=== PATIENT | female | born 1945 | race Caucasian/White ===

== ENCOUNTER → 2017-11-15 08:51 | Outpatient (CLI) | payer MEDICARE, OTHER, SELFPAY ==
--- NOTE | 2017-11-15 08:55 | DI.RAD.S_ITS ---
PROCEDURE: XR CHEST 2V INDICATIONS: persistent cough, possible pneumonia TECHNIQUE: 2 views of the chest were acquired. COMPARISON: [facility], , CHEST 2 VIEW, 02/14/2014, 10:36. FINDINGS: Surgical changes and devices: None. Lungs and pleura: No pleural effusions or pneumothorax. Lungs are clear. Mediastinum: Mediastinal contours are normal. Heart size is normal. Bones and chest wall: No suspicious bony abnormalities. Soft tissues appear unremarkable. IMPRESSION: Normal for age. Dictated by: Elieser Edwards M.D. on 11/15/2017 at 9:36 Approved by: Elieser Edwards M.D. on 11/15/2017 at 9:37
== END ==
PROVIDERS: Family Provider Physician Assistant; PCP Family Medicine; Visit Provider Physician Assistant
DX: R05 Cough (principal)
CPT/HCPCS: 71046

== ENCOUNTER → 2018-04-07 12:18 | Outpatient (CLI) | payer MEDICARE, OTHER, SELFPAY ==
--- NOTE | 2018-04-07 12:20 | DI.MG.S_ITS ---
BILATERAL DIGITAL SCREENING MAMMOGRAM 3D/2D WITH CAD POST LUMPECTOMY: 04/07/2018 CLINICAL: Routine screening. Personal history of right breast cancer. Comparison is made to exams dated: 07/27/2016 breast MRI, 07/14/2016 mammogram, and 06/25/2014 mammogram - Located [facility]. The tissue of both breasts is heterogeneously dense. This may lower the sensitivity of mammography. Current study was also evaluated with a Computer Aided Detection (CAD) system. There are benign post operative findings in the right breast. No significant masses, calcifications, or other findings are seen in either breast. There has been no significant interval change. IMPRESSION: There is no mammographic evidence of malignancy. A 1 year screening mammogram is recommended. This exam was interpreted at Station ID: [id number]. NOTE: For mammograms, a report in lay terms will be sent to the patient. Approximately 15% of breast malignancies will not be visualized mammographically. In the management of a palpable breast mass, a negative mammogram must not discourage biopsy of a clinically suspicious lesion. Electronically Signed By: Bisi wheeler/delfin:04/07/2018 13:22:05 letter sent: Normal Exam ACR BI-RADS Category 2: Benign Finding(s) 3342F
== END ==
PROVIDERS: PCP Physician Assistant; Visit Provider Physician Assistant
DX: Z12.31 Encounter for screening mammogram for malignant neoplasm of breast (principal); Z85.3 Personal history of malignant neoplasm of breast
CPT/HCPCS: 77063; 77067

== ENCOUNTER → 2018-07-19 13:36 | Outpatient (CLI) | payer MEDICARE, OTHER, SELFPAY | PROVIDERS: PCP Physician Assistant; Visit Provider Physician Assistant | DX: M81.0 Age-related osteoporosis without current pathological fracture (principal); Z85.3 Personal history of malignant neoplasm of breast; Z87.891 Personal history of nicotine dependence | CPT/HCPCS: 77080; 77081 ==

== ENCOUNTER → 2019-04-12 10:31 | Outpatient (CLI) | payer MEDICARE, OTHER, SELFPAY ==
--- NOTE | 2019-04-12 10:34 | DI.RAD.S_ITS ---
PROCEDURE: XR CHEST 2V INDICATIONS: ongoing cough, history of smoking TECHNIQUE: 2 views of the chest were acquired. COMPARISON: [facility], CR, XR CHEST 2V, 11/15/2017, 8:42. FINDINGS: Surgical changes and devices: Surgical clips projecting in the upper arm as before. Lungs and pleura: Lungs are clear. No pleural effusions or pneumothorax. Mediastinum: Mediastinal contours are normal. Heart size is normal. Bones and chest wall: No suspicious bony abnormalities. Soft tissues appear unremarkable. IMPRESSION: No acute disease. Dictated by: Alejandro Cruz M.D. on 04/12/2019 at 12:16 Approved by: Alejandro Cruz M.D. on 04/12/2019 at 12:28
== END ==
PROVIDERS: Visit Provider Nurse Practitioner Family
DX: R05 Cough (principal); Z87.891 Personal history of nicotine dependence
CPT/HCPCS: 71046

== ENCOUNTER → 2019-08-07 11:19 | Outpatient (CLI) | payer MEDICARE, OTHER, SELFPAY | PROVIDERS: PCP Nurse Practitioner Family; Referring Provider Nurse Practitioner Family; Visit Provider Nurse Practitioner Family | DX: N30.00 Acute cystitis without hematuria (principal) | CPT/HCPCS: 87086 ==

== ENCOUNTER 2019-10-04 18:08 | Emergency (ER) | payer MEDICARE, OTHER, SELFPAY ==
[2019-10-04 18:17] VITALS: BP 172/95; PULSE 74; RESP 16; TEMP 36.8; O2SAT 99; BMI 28.1
--- NOTE | 2019-10-04 18:17 | DI.RAD.S_ITS ---
PROCEDURE: XR HAND LT MIN 3V INDICATIONS: injury left hand TECHNIQUE: 3 views of the hand(s) acquired. COMPARISON: None. FINDINGS: Bones: No fractures or dislocations. Carpal bones are normally aligned. No suspicious bony lesions. IP and prominent first CMC degenerative narrowing are present. Old ulnar styloid fracture is noted. Soft tissues: No suspicious soft tissue calcifications. IMPRESSION: No visualized acute fracture or dislocation. However, if clinical concern and/or pain persist, short interval imaging followup in 7-10 days is recommended, as occult injury cannot be definitively excluded. Dictated by: Amada Escudero M.D. on 10/04/2019 at 18:43 Approved by: Amada Escudero M.D. on 10/04/2019 at 18:44
--- NOTE | 2019-10-04 18:19 | DI.RAD.S_ITS ---
PROCEDURE: XR WRIST LT MIN 3V INDICATIONS: fall TECHNIQUE: 4 views of the wrist were acquired. COMPARISON: [facility], CR, XR HAND LT MIN 3V, 10/04/2019, 18:11. FINDINGS: Bones: No fractures or dislocations. No suspicious bony lesions. First CMC degenerative narrowing is present. Old ulnar styloid fracture is noted. Scaphoid view: No visualized fracture. Soft tissues: No suspicious soft tissue calcifications. IMPRESSION: No visualized acute fracture or dislocation. However, if clinical concern and/or pain persist, short interval imaging followup in 7-10 days is recommended, as occult injury cannot be definitively excluded. Dictated by: Amada Escudero M.D. on 10/04/2019 at 18:48 Approved by: Amada Escudero M.D. on 10/04/2019 at 18:49
--- NOTE | 2019-10-04 19:01 | ED_ITS ---
HPI - Extremity Injury (Upper) <SYL Peterson - Last Filed: 10/04/19 21:32> General Chief Complaint: Extremity Injury, Upper Stated Complaint: fall, left hand and wrist injury Time Seen by Provider: 10/04/19 18:17 Source: patient Mode of arrival: Family Vehicle Limitations: no limitations History of Present Illness HPI narrative: 73yo male presents to the emergency department for left wrist and hand pain after tripping in her garden. She states she tripped on her flip- flops fell on her left hand. Patient reports she had a previous fracture years ago to her left wrist. She states she has a dull aching 4/10 pain that is worse with movement. Patient reports small laceration hand, bleeding controlled with pressure. Unknown last Tdap. She also reports hitting her head briefly. Patient denies any syncope, severe headache, history of taking any blood thinners, chest pain, vomiting, nausea, abdominal pain, fevers, chills, gait imbalances, or any other concerns. Related Data Home Medications Medication Instructions Recorded Confirmed [ISAGENIX SUPPLEMENTS] PO QDAY #0 01/27/16 08/05/19 Previous Rx's Medication Instructions Recorded raloxifene 60 mg tablet 60 mg PO DAILY #90 tab 09/13/19 Allergies Allergy/AdvReac Type Severity Reaction Status Date / Time No Known Drug Allergies Allergy Verified 10/04/19 18:28 Review of Systems <SYL Peterson - Last Filed: 10/04/19 21:32> Review of Systems Narrative: REVIEW OF SYSTEMS: GENERAL: Denies fever or chills. HENT: Reports head trauma, denies laceration or lump, see HPI. EYES: No vision changes. CARDIOVASCULAR: No chest pain or syncope. RESPIRATORY: No shortness of breath or cough. GASTROINTESTINAL: No nausea, vomiting, diarrhea, or constipation. GENITOURINARY: No flank pain or dysuria. MUSCULOSKELETAL: Complains of L wrist pain, see HPI. INTEGUMENTARY: Reports laceration to lateral aspect of hand. NEURO: No numbness, tingling. PSYCH: No behavior or mood changes. 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 Grandfather No problems noted. Grandmother No problems noted. Social History Smoking Status: Former smoker second hand exposure: Yes alcohol intake: current (wine and beer a couple of times a week) substance use type: former substance user (marijuana) Smoking Status: Former smoker alcohol intake frequency: 0-2 drinks per day Substance Use Type: does not use Exam <SYL Peterson - Last Filed: 10/04/19 21:32> Initial Vital Signs Initial Vital Signs: Vital Signs Temperature 98.2 F 10/04/19 18:17 Pulse Rate 74 10/04/19 18:17 Respiratory Rate 16 10/04/19 18:17 Blood Pressure 172/95 H 10/04/19 18:17 Pulse Oximetry 99 10/04/19 18:17 PHYSICAL EXAMINATION: GENERAL: Well groomed, alert, and cooperative. Answers questions promptly and appropriately. Vital signs noted. HENT: Normocephalic, no signs of trauma, no laceration or hematoma noted to head. EYES: Symmetrical, sclera white, no periorbital swelling. CARDIOVASCULAR: S1 and S2 sounds normal. Regular rate and rhythm, no murmurs, clicks, or bruits. No pedal edema. RESPIRATORY: Normal respiratory rate, trachea midline, airway patent. No stridor, nasal flaring or accessory muscle use. Lungs are clear in all xiao. MUSCULOSKELETAL: Tenderness and ecchymosis noted to palmar aspect of left wrist approximately 8 cm x 8 cm, full range of motion of left wrist with tenderness to palpation. Patient able to make a fist, equal service center technician strength bilaterally. Normal gait and coordination. Equal tone and mass bilaterally. EXTREMITIES: CMS intact. No pedal edema. SKIN: Warm, dry, soft, appropriate color for ethnicity. A 2.5 cm laceration noted to lateral aspect of hand below MCP joint full range of motion of finger against resistance. Small amount of subcutaneous tissue visualized, small amount of dirt and wound. Wound was irrigated extensively and repaired with sutures, see procedure note. NEURO: Alert and Oriented X 3. No sensory deficits. PSYCH: Appropriate affect and mood. <Shantanu Wood DO - Last Filed: 10/05/19 02:03> Initial Vital Signs Initial Vital Signs: Vital Signs Temperature 98.2 F 10/04/19 18:17 Pulse Rate 74 10/04/19 18:17 Respiratory Rate 16 10/04/19 18:17 Blood Pressure 172/95 H 10/04/19 18:17 Pulse Oximetry 99 10/04/19 18:17 Procedures <SYL Peterson - Last Filed: 10/04/19 21:32> Laceration Repair Laceration 1: Site: hand Side (If applicable): left Size (cm): 2.5 Description: linear Depth: simple, single layer Local Anesthetic: lidocaine 1% and with bicarb Amount of anesthesia used (mL): 4 Skin layer closed with: nylon Size (cm): 5-0 Number of sutures: 3 Technique: simple, interrupted Scores <SYL Peterson - Last Filed: 10/04/19 21:32> Nexus Score for C-Spine Focal Neurologic deficit present: No Midline spinal tenderness present: No Altered level of conciousness present: No Intoxication present: No Distracting Injury Present: No Nexus Criteria for C-spine: 0 Course <SYL Peterson - Last Filed: 10/04/19 21:32> Course Course Narrative: Wound was irrigated with 400 mL of normal saline and 18G IV catheter after administration of lidocaine.. Patient tolerated procedure well. Patient was given a Velcro wrist to help with pain. Orders Ordered: ED Orders 10/04/19 18:17 XR hand LT min 3V Stat 10/04/19 18:19 XR wrist LT min 3V Stat Discontinued Medications Diphtheria/Tetanus/Acell Pertussis (Adacel) 0.5 ml IM .ONCE ONE Stop: 10/04/19 19:24 Last Admin: 10/04/19 19:31 Dose: 0.5 ml Documented by: SIAFARL Lidocaine/Sodium Bicarbonate (Buffered Lidocaine 10 Ml Syr) 10 ml INJ NOW ONE Stop: 10/04/19 19:40 Last Admin: 10/04/19 20:00 Dose: 10 ml Documented by: MMCFARL Vital Signs Vital signs: Vital Signs - 8 hr 10/04/19 18:17 10/04/19 19:40 Temperature 98.2 F Pulse Rate 74 70 Respiratory Rate 16 15 Blood Pressure 172/95 H 160/89 H Pulse Oximetry 99 100 <Shantanu Wood DO - Last Filed: 10/05/19 02:03> Orders Ordered: ED Orders 10/04/19 18:17 XR hand LT min 3V Stat 10/04/19 18:19 XR wrist LT min 3V Stat Discontinued Medications Diphtheria/Tetanus/Acell Pertussis (Adacel) 0.5 ml IM .ONCE ONE Stop: 10/04/19 19:24 Last Admin: 10/04/19 19:31 Dose: 0.5 ml Documented by: MMCFARL Lidocaine/Sodium Bicarbonate (Buffered Lidocaine 10 Ml Syr) 10 ml INJ NOW ONE Stop: 10/04/19 19:40 Last Admin: 10/04/19 20:00 Dose: 10 ml Documented by: MIRANDA Vital Signs Vital signs: Vital Signs - 8 hr 10/04/19 18:17 10/04/19 19:40 Temperature 98.2 F Pulse Rate 74 70 Respiratory Rate 16 15 Blood Pressure 172/95 H 160/89 H Pulse Oximetry 99 100 MDM - Extremity Injury (Upper) <SYL Peterson - Last Filed: 10/04/19 21:32> Medical Records Attestation: I reviewed the patient's medical records. Lab Data Attestation: I reviewed the patient's lab results. Imaging Data Extremity x-ray #1: Radiologist's Impression: [address] [address] XRay Report Signed Patient: Chuyita Jay [facility]#: [id number] : 8Acct:[id number] Age/Sex: 73 / FDate of Service: 10/04/19 Loc: ED Accession Number: [id number] Procedure: XR wrist LT min 3V Ordering Provider: Jimena Ray PROCEDURE: XR WRIST LT MIN 3V INDICATIONS: fall TECHNIQUE: 4 views of the wrist were acquired. COMPARISON: [facility], , XR HAND LT MIN 3V, 10/04/2019, 18:11. FINDINGS: Bones: No fractures or dislocations. No suspicious bony lesions. First CMC degenerative narrowing is present. Old ulnar styloid fracture is noted. Scaphoid view: No visualized fracture. Soft tissues: No suspicious soft tissue calcifications. IMPRESSION: No visualized acute fracture or dislocation. However, if clinical concern and/or pain persist, short interval imaging followup in 7-10 days is recommended, as occult injury cannot be definitively excluded. Dictated by: Amada Escudero M.D. on 10/04/2019 at 18:48 Approved by: Amada Escudero M.D. on 10/04/2019 at 18:49 Extremity x-ray #2: Radiologist's Impression: [place] [address] XRay Report Signed Patient: Chuyita Jay [facility]#: [id number] : 8Acct:[id number] Age/Sex: 73 / FDate of Service: 10/04/19 Loc: ED Accession Number: [id number] Procedure: XR hand LT min 3V Ordering Provider: Shantanu Wood D.O. PROCEDURE: XR HAND LT MIN 3V INDICATIONS: injury left hand TECHNIQUE: 3 views of the hand(s) acquired. COMPARISON: None. FINDINGS: Bones: No fractures or dislocations. Carpal bones are normally aligned. No suspicious bony lesions. IP and prominent first CMC degenerative narrowing are present. Old ulnar styloid fracture is noted. Soft tissues: No suspicious soft tissue calcifications. IMPRESSION: No visualized acute fracture or dislocation. However, if clinical concern and/or pain persist, short interval imaging followup in 7-10 days is recommended, as occult injury cannot be definitively excluded. Dictated by: Amada Escudero M.D. on 10/04/2019 at 18:43 Approved by: Amada Escudero M.D. on 10/04/2019 at 18:44 MDM Narrative Medical decision making narrative: 73-year-old female presents emergency department after a FOOSH, she does report hitting her head slightly after falling, denies any major concerns such as syncope, vomiting, and denies taking any blood thinners. Hand and wrist x-ray negative for any signs of fracture. I suspect patient's pain is most likely caused from a contusion versus sprain. Patient was given a wrist brace help pain. Laceration was repaired with sutures due to significant calf and skin and subcutaneous tissue present. Only 3 sutures were placed as wound appeared dirty initially, wound was irrigated extensively. Patient was encouraged to follow up with her primary care provider in 1-2 weeks for further evaluation if symptoms continue. Patient was educated to watch for signs of infection and to have her sutures removed in days. Patient agreed to plan of care verbalized understanding. Discharge Plan Departure Patient Disposition: Home Clinical Impression: Left wrist pain, Laceration Discharge Date/Time: 10/04/19 19:40 Instructions: DI for Wrist Strain, DI for Wrist Pain Activity Restrictions/Additional Instructions: Thank you for entrusting me with your care today. As discussed, your x-rays are negative for any fractures. You may use the wrist brace as needed for support, use ice and ibuprofen for pain. Your wound has been irrigated and repaired with 3 sutures, these will need to be removed in 7 days, this can be done at her primary care provider's office or the emergency department. Watch for signs of infection such as increased redness, pus, or significant pain. Your T-dap was updated today. You may apply Neosporin to the area daily. Leave the bandage in place for 24 hours. Do not soak your hand in water such as in a hot tub or dirty dishwater. You may shower with your wound. Please monitor yourself for signs of a concussion, you may have a headache for the next few days. Decrease mental stimulation such as vigorous exercise for excessive screen time. Return emergency department for any new or worsening symptoms severe pain, uncontrollable vomiting, syncope, chest pain, or any other concerns. Please follow-up with your primary care provider in 1-2 weeks for further evaluation if symptoms continue. Prescriptions: No Action [ISAGENIX SUPPLEMENTS] PO QDAY Qty: 0 RF: 0 raloxifene 60 mg tablet 60 mg PO DAILY Qty: 90 RF: 0 Referrals: Topher Beavers ARNP [Primary Care Provider] - <Shantanu Wood DO - Last Filed: 10/05/19 02:03> Cosign ED Attending Coskirbyature Attestation: I was immediately available in the department for consultation. This documentation has been reviewed and I agree with assessment and plan. Supervised by Shantanu Wood DO
[2019-10-04] MEDS: TET,DIPH,PERTUSS(ACELL),VAC/PF 0.5 ML SYRINGE IM (19:31)
[2019-10-04 19:40] VITALS: BP 160/89; PULSE 70; RESP 15; O2SAT 100
[2019-10-04] MEDS: LIDO 1%/SOD BICARB 8.4% (10ML) 10 ML SYRINGE INJ (20:00)
== END 2019-10-04 19:40 | disposition home or self-care (01) ==
PROVIDERS: Emergency Provider Nurse Practitioner; PCP Nurse Practitioner Family
DX: M25.532 Pain in left wrist (principal); S61.412A Laceration without foreign body of left hand, initial encounter; W01.0XXA Fall on same level from slipping, tripping and stumbling without subsequent striking against object, initial encounter; Z23 Encounter for immunization
CPT/HCPCS: 12001; 73110; 73130; 90471; 99283; 99284; 90715

== ENCOUNTER → 2020-01-09 10:05 | Outpatient (CLI) | payer MEDICARE, OTHER, SELFPAY ==
--- NOTE | 2020-01-09 10:10 | DI.RAD.S_ITS ---
PROCEDURE: XR CHEST 2V INDICATIONS: cough TECHNIQUE: 2 views of the chest were acquired. COMPARISON: [facility], CR, XR CHEST 2V, 04/12/2019, 10:33. FINDINGS: Surgical changes and devices: None. Lungs and pleura: Lungs are clear. No pleural effusions or pneumothorax. Mediastinum: Mediastinal contours are normal. Heart size is normal. Bones and chest wall: No suspicious bony abnormalities. Soft tissues appear unremarkable. IMPRESSION: No acute cardiopulmonary disease. Dictated by: Gerardo Leroy M.D. on 01/09/2020 at 10:58 Approved by: Gerardo Leroy M.D. on 01/09/2020 at 10:58
== END ==
PROVIDERS: PCP Nurse Practitioner Family; Referring Provider Physician Assistant; Visit Provider Physician Assistant
DX: R05 Cough (principal)
CPT/HCPCS: 71046

== ENCOUNTER → 2020-01-11 09:31 | Outpatient (CLI) | payer MEDICARE, OTHER, SELFPAY ==
[2020-01-13 09:51] LABS: COVID19 Sendout Not Detected (Not Detected)
== END ==
PROVIDERS: PCP Nurse Practitioner Family; Visit Provider Physician Assistant
DX: Z11.59 Encounter for screening for other viral diseases (principal); R05 Cough
CPT/HCPCS: 87635

== ENCOUNTER → 2020-02-18 08:43 | Outpatient (CLI) | payer MEDICARE, OTHER, SELFPAY ==
[2020-02-18 10:24] LABS: Alanine Aminotransferase 25 IU/L (<35); Albumin 3.7 g/dL (3.5-5.0); Albumin Globulin Ratio 1.3 (1.0-2.8); Alkaline Phosphatase 90 U/L (38-126); Aspartate Aminotransferase 29 IU/L (14-36); BUN Creatinine Ratio 22.4 (6-22); Bilirubin Total 0.5 mg/dL (0.2-1.3); Blood Urea Nitrogen 17 mg/dL (7-17); Carbon Dioxide 34 mmol/L (22-32); Chloride 102 mmol/L (98-107); Cholesterol 281 mg/dL (140-199); Estimated Glomerular Filt Rate > 60.0 mL/min (>60); Globulin 2.8 g/dL (1.7-4.1); Glucose 90 mg/dL (80-110); HEMOLYSIS < 15 (0-50); Potassium 4.3 mmol/L (3.4-5.1); Sodium 137 mmol/L (137-145); Total Protein 6.5 g/dL (6.3-8.2); Triglycerides 90 mg/dL (35-150)
[2020-02-18 10:33] LABS: HDL Cholesterol 137 mg/dL (40-60); LDL Cholesterol Calculated 126 mg/dL (<100)
== END ==
PROVIDERS: PCP Nurse Practitioner Family; Referring Provider Nurse Practitioner Family; Visit Provider Nurse Practitioner Family
DX: E78.2 Mixed hyperlipidemia (principal); J45.909 Unspecified asthma, uncomplicated; M81.0 Age-related osteoporosis without current pathological fracture; R13.10 Dysphagia, unspecified
CPT/HCPCS: 36415; 80053; 80061

== ENCOUNTER → 2020-05-11 15:04 | Outpatient (CLI) | payer MEDICARE, OTHER, SELFPAY ==
[2020-05-11 16:49] LABS: Hematocrit 39.2 % (36-46); Hemoglobin 12.9 g/dL (12.0-16.0); Mean Corpuscular HGB Conc 32.9 % (30-36); Mean Corpuscular Hemoglobin 28.9 PG (26-34); Platelet Count 243 X10^3/uL (150-400); Red Blood Cell Count 4.45 X10^6/uL (4.0-5.2); Red Cell Distribution Width 13.9 % (11.6-14.8); White Blood Cell Count 6.9 X10^3/uL (4.5-11.0)
== END ==
PROVIDERS: PCP Nurse Practitioner Family; Referring Provider Nurse Practitioner Family; Visit Provider Nurse Practitioner Family
DX: J45.909 Unspecified asthma, uncomplicated (principal)
CPT/HCPCS: 36415; 85027

== ENCOUNTER 2020-05-15 21:01 | Emergency (ER) | payer MEDICARE, OTHER, SELFPAY ==
[2020-05-15 21:09] VITALS: PULSE 77; O2SAT 97
[2020-05-15 21:10] VITALS: BP 186/100; PULSE 78; RESP 15; TEMP 35.4; O2SAT 98
--- NOTE | 2020-05-15 21:19 | DI.CT.S_ITS ---
PROCEDURE: CT HEAD/BRAIN WO CON INDICATIONS: fall with head injury, on alcohol TECHNIQUE: Noncontrast 4.5 mm thick angled axial sections acquired from the foramen magnum to the vertex, with coronal and sagittal reformats. For radiation dose reduction, the following was used: automated exposure control, adjustment of mA and/or kV according to patient size. COMPARISON: None. FINDINGS: Image quality: Excellent. CSF spaces: Basal cisterns are patent. No extra-axial fluid collections. The ventricles are symmetric in size and shape. Brain: No intracranial bleeds or masses. There is cerebral volume loss for age, with resultant ventricular and sulcal prominence. There are periventricular and deep white matter chronic small vessel ischemic changes. There is intracranial internal carotid artery atherosclerosis. Skull and face: Calvarium and visualized facial bones appear intact, without suspicious lesions. Sinuses: Visualized sinuses and mastoids are clear. IMPRESSION: 1. No CT evidence of acute intracranial pathology. 2. Age-appropriate atrophy and mild to moderate periventricular and deep white matter chronic small vessel ischemic changes. 3. No acute skull fracture. Dictated by: Aryan Hoff M.D. on 05/15/2020 at 21:46 Approved by: Aryan Hoff M.D. on 05/15/2020 at 21:47
--- NOTE | 2020-05-15 21:19 | DI.CT.S_ITS ---
PROCEDURE: CT CERVICAL SPINE WO CON INDICATIONS: fall, head injury, alcohol TECHNIQUE: Noncontrast 3 mm thick sections acquired from the skull base to the T4 level. Sagittal and coronal reformats were then constructed. For radiation dose reduction, the following was used: automated exposure control, adjustment of mA and/or kV according to patient size. COMPARISON: None. FINDINGS: Image quality: Excellent. Bones: No fractures or dislocations. Mild degenerative endplate changes are noted throughout cervical spine. Visualized superior ribs are intact. Soft tissues: Prevertebral soft tissues are normal in thickness. No paravertebral hematomas. No apical pneumothoraces. IMPRESSION: No acute cervical spine fracture or dislocation. Mild degenerative disc disease throughout cervical spine. Dictated by: Aryan Hoff M.D. on 05/15/2020 at 21:47 Approved by: Aryan Hoff M.D. on 05/15/2020 at 21:48
[2020-05-15 21:38] VITALS: PULSE 72; O2SAT 96
--- NOTE | 2020-05-15 21:39 | ED_ITS ---
HPI - Fall General Chief Complaint: Fall Stated Complaint: nose/chin and forhead fell walking in from dinner Time Seen by Provider: 05/15/20 21:05 Source: patient Mode of arrival: Ambulatory Limitations: no limitations History of Present Illness HPI Narrative: 74F former smoker with history of COPD presents with her and chief complaint of a ground level fall in which she fell forward and struck her face on the ground. She did not suffer LOC, she's had no N/V. She denies focal neurolgic symptoms. She denies neck or back pain. She has no chest pain, abdominal pain or extremity injury. She denies bloody nose or dental injury. She does not take a blood thinner. She had a few drinks tonight. She does have full recall. She tripped on her own feet. MD complaint: fall Onset (ago): minute(s) Fall from: standing Fall witnessed: yes, by family Place fall occurred: home Loss of consciousness: none Prolonged down time: no Symptoms prior to fall: none Context: tripped/slipped and alcohol use Location of injury: head and face Severity: mild Quality: aching Associated symptoms (after fall): denies Related Data Home Medications Medication Instructions Recorded Confirmed estradiol VAGINAL 04/29/20 04/29/20 pantoprazole 40 mg tablet,delayed mg PO 04/29/20 04/29/20 release Previous Rx's Medication Instructions Recorded pravastatin 20 mg tablet 20 mg PO DAILY #90 tab 02/18/20 fluticasone 250 mcg-salmeterol 50 1 inh INHALATION BID #60 ea 04/29/20 mcg/dose blistr powdr for inhalation albuterol sulfate 90 mcg/actuation 2 puff INHALATION Q6H PRN #8 gram 05/04/20 aerosol inhaler benzonatate 100 mg capsule 100 mg PO TID PRN #30 cap 05/04/20 raloxifene 60 mg tablet 60 mg PO DAILY #30 tab 05/11/20 benzonatate 100 mg capsule 100 mg PO BID-TID PRN #30 cap 05/12/20 cephalexin 500 mg PO QID 7 Days #28 cap 05/15/20 Allergies Allergy/AdvReac Type Severity Reaction Status Date / Time No Known Drug Allergies Allergy Verified 04/29/20 14:06 Review of Systems Constitutional Constitutional: Denies chills, Denies fatigue, Denies fever(s), Denies frequent falls, Denies lethargy and Denies weakness Eyes Eyes: Denies change in vision, Denies eye discharge, Denies irritation and Denies loss of vision ENT Ears, Nose, Mouth, and Throat: Denies change in voice, Denies dizziness, Denies neck pain, Denies sore throat and Denies throat swelling Cardiovascular Cardiovascular: Denies chest pain, Denies irregular heart rhythm, Denies lightheadedness, Denies palpitations, Denies dyspnea, Denies dyspnea on exertion and Denies orthopnea Respiratory Respiratory: Denies cough, Denies dyspnea, Denies dyspnea on exertion and Denies wheezing Gastrointestinal Gastrointestinal: Denies abdominal pain, Denies change in bowel habits, Denies diarrhea, Denies nausea and Denies vomiting Musculoskeletal Musculoskeletal: Denies neck pain and Denies numbness Integumentary/Breasts Skin/Breast: Denies pruritus, Denies erythema, Denies rash and Reports wounds Neurologic Neurologic: Denies behavioral changes, Denies confusion, Denies dizziness, Denies frequent falls, Denies loss of vision, Denies numbness and Denies weakness Psychiatric Psychiatric: Denies anxiety, Denies behavioral changes, Denies confusion, Denies depression, Denies homicidal ideation and Denies suicidal ideation Endocrine Endocrine: Denies fatigue, Denies flushing and Denies palpitations Hematologic/Lymphatic Hematologic/Lymphatic: Denies easy bruising Allergic/Immunologic Allergic/Immunologic: Denies urticaria, Denies throat swelling and Denies wheezing Patient History Medical History Bunion Chronic cough Degeneration of intervertebral disc of lumbar region (09/23/15) Degenerative disc disease (Unknown) Depression (Unknown) Dysphagia (10/2019) Encounter for screening colonoscopy Fatigue GERD with esophagitis (02/2020) Hearing loss (~2016) Hemangioma of vertebral body (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 Grandfather No problems noted. Grandmother No problems noted. Social History Smoking Status: Former smoker second hand exposure: Yes alcohol intake: current substance use type: former substance user Smoking Status: Former smoker alcohol intake frequency: 0-2 drinks per day Substance Use Type: does not use Exam Narrative Exam Narrative: GENERAL: [74] year old patient appears stated age. Well- nourished, well-developed patient, in mild distress. Embarrassed, tearful, GCS 15. Clear speech, no slurring HEAD: No evidence of depressed skull fracture. Deep abrasion on left forehead, 1 cm x 1 cm, minimal active bleeding, nothing to suture. Deep abrasion with a skin flap component on chin, minimal active bleeding, 2 cm x 2 cm. EYES: Pupils equal round and reactive. Extraocular motions intact. No scleral icterus. No injection or drainage. ENT: Nose without bleeding, purulent drainage. Throat without erythema, tonsillar hypertrophy or exudate. Airway patent. No obvious dental injury or malocclusion NECK: Trachea midline. Non tender CARDIOVASCULAR: Regular rate and rhythm without murmurs, gallops, or rubs. RESPIRATORY: Clear to auscultation. Breath sounds equal bilaterally. No wheezes, rales, or rhonchi. GASTROINTESTINAL: Abdomen soft, non-tender, nondistended. EXTREMITIES: No edema or joint tenderness. BACK: Nontender without deformity or crepitance. No flank tenderness. NEURO: AOx3. SKIN: No rash or erythema of visible areas Initial Vital Signs Initial Vital Signs: Vital Signs Pulse Rate 77 05/15/20 21:09 Pulse Oximetry 97 05/15/20 21:09 Procedures Laceration Repair Laceration 1: Site: face Size (cm): 2 Description: flap, irregular and clean Depth: simple, single layer Local Anesthetic: lidocaine 1% Pre-repair: wound explored, irrigated extensively and deep structures intact Skin layer closed with: nylon Size (cm): 6-0 Number of sutures: 3 Technique: simple, interrupted Course Orders Ordered: Discontinued Medications Hydrocodone Bitart/Acetaminophen (Hydrocodone/Acet 5/325 Prepack) 1 bottle MISC SEEINSTR ONE Stop: 05/15/20 22:49 Last Admin: 05/15/20 22:51 Dose: 1 bottle Documented by: WILLOW Cefazolin Sodium (Cephalexin 250 Mg Prepack) 1 bottle MISC SEEINSTR ONE Stop: 05/15/20 22:05 Last Admin: 05/15/20 22:08 Dose: 250 mg Documented by: WILLOW Lidocaine/Sodium Bicarbonate (Lido 1%/Sod Bicarb 8.4% (10ml) 10 Ml Syringe) 10 ml INJ NOW ONE Stop: 05/15/20 21:45 Last Admin: 05/15/20 21:51 Dose: 10 ml Documented by: WILLOW Vital Signs Vital signs: Vital Signs - 8 hr 05/15/20 21:10 Temperature 95.7 F L Pulse Rate 78 Respiratory Rate 15 Blood Pressure 186/100 H Pulse Oximetry 98 MDM - Fall Imaging Data CT scan - head: Radiologist's Impression: Chuyita Jay 74 F [address] [id number] Scan ReportSigned Patient: Chuyita Jay [facility]#: [id number]: 8Acct:[id number]/Sex: 74 / FDate of Service: 05/15/20Loc: EDAccession Number: [id number] Procedure: CT head/brain wo con Ordering Provider: Shantanu Wood D.O. PROCEDURE: CT HEAD/BRAIN WO CON INDICATIONS: fall with head injury, on alcohol TECHNIQUE: Noncontrast 4.5 mm thick angled axial sections acquired from the foramen magnum to the vertex, with coronal and sagittal reformats. For radiation dose reduction, the following was used: automated exposure control, adjustment of mA and/or kV according to patient size. COMPARISON: None. FINDINGS: Image quality: Excellent. CSF spaces: Basal cisterns are patent. No extra-axial fluid collections. The ventricles are symmetric in size and shape. Brain: No intracranial bleeds or masses. There is cerebral volume loss for age, with resultant ventricular and sulcal prominence. There are periventricular and deep white matter chronic small vessel ischemic changes. There is intracranial internal carotid artery atherosclerosis. Skull and face: Calvarium and visualized facial bones appear intact, without suspicious lesions. Sinuses: Visualized sinuses and mastoids are clear. IMPRESSION: 1. No CT evidence of acute intracranial pathology. 2. Age-appropriate atrophy and mild to moderate periventricular and deep white matter chronic small vessel ischemic changes. 3. No acute skull fracture. Dictated by: Aryan Hoff M.D. on 05/15/2020 at 21:46 Approved by: Aryan Hoff M.D. on 05/15/2020 at 21:47 CT - cervical spine: Radiologist's Impression: Chuyita Jay 74 F [address] [id number] Scan ReportSigned Patient: Chuyita Jay MMR#: [id number]: 1945 cct:[id number]/Sex: 74 / FDate of Service: 05/15/20Loc: EDAccession Number: [id number] Procedure: CT cervical spine wo con Ordering Provider: Shantanu Wood D.O. PROCEDURE: CT CERVICAL SPINE WO CON INDICATIONS: fall, head injury, alcohol TECHNIQUE: Noncontrast 3 mm thick sections acquired from the skull base to the T4 level. Sagittal and coronal reformats were then constructed. For radiation dose reduction, the following was used: automated exposure control, adjustment of mA and/or kV according to patient size. COMPARISON: None. FINDINGS: Image quality: Excellent. Bones: No fractures or dislocations. Mild degenerative endplate changes are noted throughout cervical spine. Visualized superior ribs are intact. Soft tissues: Prevertebral soft tissues are normal in thickness. No paravertebral hematomas. No apical pneumothoraces. IMPRESSION: No acute cervical spine fracture or dislocation. Mild degenerative disc disease throughout cervical spine. Dictated by: Aryan Hoff M.D. on 05/15/2020 at 21:47 Approved by: Aryan Hoff M.D. on 05/15/2020 at 21:48 Discharge Plan Departure Patient Disposition: Home Clinical Impression: Laceration of chin Qualifiers: Encounter type: initial encounter Qualified Code(s): S01.81XA - Laceration without foreign body of other part of head, initial encounter Abrasion of face Qualifiers: Encounter type: initial encounter Qualified Code(s): S00.81XA - Abrasion of other part of head, initial encounter Instructions: DI for Laceration Repair Activity Restrictions/Additional Instructions: *You have been diagnosed with [fall with facial injury] *What to do: *Take medications as directed: Remainder of antibiotics sent to [facility] at your request *Follow up with your primary care provider in 2-3 days, call for an appointment. Let them know you were seen in the Emergency Department and that we ask that you be seen in follow up *Return to ER if you should have any new, worsening or concerning symptoms Please keep the wound clean and dry to the best of your ability. Please monitor for signs of infection such as redness to the skin or increasing pain. Have the sutures removed by your doctor in about 7 days. If you are unable to get into your doctor, we would be happy to remove the sutures in that same timeframe. Prescriptions: New cephalexin 500 mg capsule 500 mg PO QID 7 Days Qty: 28 RF: 0 No Action pravastatin 20 mg tablet 20 mg PO DAILY Qty: 90 RF: 0 benzonatate [Tessalon Perles] 100 mg capsule 100 mg PO TID PRN (Reason: cough) Qty: 30 RF: 1 albuterol sulfate 90 mcg/actuation HFA aerosol inhaler 2 puff INHALATION Q6H PRN (Reason: shortness of breath or wheezing) Qty: 8 RF: 1 raloxifene 60 mg tablet 60 mg PO DAILY Qty: 30 RF: 1 estradiol 0.01 % (0.1 mg/gram) cream vaginal RF: 0 pantoprazole 40 mg tablet,delayed release (DR/EC) PO RF: 0 fluticasone propion-salmeterol [Advair Diskus] 250-50 mcg/dose blister with device 1 inh inhalation BID Qty: 60 RF: 0 benzonatate [Tessalon Perles] 100 mg capsule 100 mg PO BID-TID PRN (Reason: cough) Qty: 30 RF: 1 Referrals: Topher Beavers ARNP [Primary Care Provider] -
[2020-05-15] MEDS: LIDO 1%/SOD BICARB 8.4% (10ML) 10 ML SYRINGE INJ (21:51)
[2020-05-15 22:00] VITALS: BP 135/81; PULSE 72; O2SAT 95
[2020-05-15 22:04] VITALS: BP 135/81; PULSE 75; O2SAT 96
[2020-05-15] MEDS: cephALEXin 250 MG PREPACK 1 BOTTLE MISC (22:08)
[2020-05-15] MEDS: HYDROCODONE/ACET 5/325 PREPACK 1 BOTTLE MISC (22:51)
== END 2020-05-15 23:02 | disposition home or self-care (01) ==
PROVIDERS: Emergency Provider Emergency Medicine; PCP Nurse Practitioner Family
DX: S01.81XA Laceration without foreign body of other part of head, initial encounter (principal); S09.90XA Unspecified injury of head, initial encounter; W01.0XXA Fall on same level from slipping, tripping and stumbling without subsequent striking against object, initial encounter; J44.9 Chronic obstructive pulmonary disease, unspecified; E78.5 Hyperlipidemia, unspecified
CPT/HCPCS: 12011; 70450; 72125; 99284

== ENCOUNTER → 2020-05-21 12:21 | Outpatient (CLI) | payer MEDICARE, OTHER, SELFPAY ==
--- NOTE | 2020-05-21 12:26 | DI.RAD.S_ITS ---
PROCEDURE: XR DEXA AXIAL SKELETON INDICATIONS: osteoporosis COMPARISON: [facility], CR, XR DEXA AXIAL SKELETON, 07/19/2018, 13:55. FINDINGS: This blank DEXA report has been sent in error by the PACS system. The correct and complete report will be forthcoming in 1-2 days. Thank you for your patience and understanding. Dictated by: Cande Sainz MD, PhD on 05/21/2020 at 13:35 Approved by: Cande Sainz MD, PhD on 05/21/2020 at 13:36
--- NOTE | 2020-05-21 12:26 | DI.MG.S_ITS ---
BILATERAL DIGITAL SCREENING MAMMOGRAM 3D/2D WITH CAD: 05/21/2020 CLINICAL: Routine screening. Personal history of right breast cancer. Family history of breast cancer. Comparison is made to exams dated: 04/07/2018 mammogram, 07/14/2016 mammogram, and 06/25/2014 mammogram - [facility]. The tissue of both breasts is heterogeneously dense. This may lower the sensitivity of mammography. Current study was also evaluated with a Computer Aided Detection (CAD) system. There are benign calcifications in the left breast. No significant masses, calcifications, or other findings are seen in either breast. There has been no significant interval change. IMPRESSION: BENIGN There is no mammographic evidence of malignancy. A 1 year screening mammogram is recommended. This exam was interpreted at Station ID: [id number]. NOTE: For mammograms, a report in lay terms will be sent to the patient. Approximately 15% of breast malignancies will not be visualized mammographically. In the management of a palpable breast mass, a negative mammogram must not discourage biopsy of a clinically suspicious lesion. Electronically Signed By: Steve Garces acr/penrad:05/21/2020 12:49:49 letter sent: Normal Exam ACR BI-RADS Category 2: Benign Finding(s) 3342F
== END ==
PROVIDERS: PCP Nurse Practitioner Family; Referring Provider Nurse Practitioner Family; Visit Provider Nurse Practitioner Family
DX: Z12.31 Encounter for screening mammogram for malignant neoplasm of breast (principal); Z85.3 Personal history of malignant neoplasm of breast; Z80.3 Family history of malignant neoplasm of breast; M81.0 Age-related osteoporosis without current pathological fracture; Z78.0 Asymptomatic menopausal state; Z87.891 Personal history of nicotine dependence
CPT/HCPCS: 77063; 77067; 77080

== ENCOUNTER → 2020-06-10 08:25 | Outpatient (CLI) | payer MEDICARE, OTHER, SELFPAY ==
--- NOTE | 2020-06-10 08:26 | DI.ECHO.S_ITS ---
[place] [facility]---------+ [facility] +---------+ : : [address] : : : : [id number] : : : : Phone: [phone] Echocardiogram Report + + :Name: DESTINY GIL Study Date: 06/10/2020 Height: 64 in : :[facility] Weight: 171 lb : : Gender: Female BSA: 1.8 m2 : :: 1945 Age: 74 yrs BP: 147/102 mmHg: :Reason For Study: CHRONIC COUGH, PROGRESSIVE EXERTIONAL : :FATIGUE : :Ordering Physician: RAY, : :RHONDA Performed By: Jennifer Pierre : :Referring: RHONDA MOSS : + + Interpretation Summary Normal left ventricular systolic function with an estimated ejection fraction of 65 to 70% without any focal wall motion abnormality. Left ventricular size and wall thickness appear normal with probable normal diastolic function and filling pressures. The right ventricle appears normal in size and systolic function. Right ventricular systolic pressure is estimated at 27 mmHg with estimated CVP of 3 mmHg. There is mild left atrial enlargement. There is mild calcific sclerosis of the mitral and aortic valve but without significant functional abnormality. There is mild tricuspid regurgitation but no other valvular abnormality. The aortic root is normal in size but with notable increased luminal echogenicity consistent with probable significant atherosclerotic calcification. Procedure: A two-dimensional transthoracic echocardiogram with color flow and Doppler was performed. The study quality was technically difficult. There is no prior echocardiogram noted for this patient. A contrast injection of Definity was performed to improve assessment of LV function. Definity was used after patient education and consent. Patient denied any symptoms after the use of Definity. Contrast was injected into an intravenous site in the right arm. The patient was in sinus rhythm with heart rates between 62-70 bpm during the exam. Left Ventricle: The left ventricle appears normal in size, wall thickness, and systolic function without any focal wall motion abnormalities. The ejection fraction is estimated to be 65-70%. Diastolic parameters suggest probable normal left ventricular diastolic function and normal filling pressures. Right Ventricle: The right ventricle is normal in size and function. Atria: The left atrium is mildly dilated. Right atrial size is normal. There is no Doppler evidence for an interatrial shunt. Mitral Valve: There is mild to moderate mitral annular calcification. The mitral valve leaflets appear normal. There is no evidence of stenosis, fluttering, or prolapse. There is no mitral regurgitation noted. Aortic Valve: The aortic valve is trileaflet. The aortic valve is mildly calcified. The aortic valve opens well. There is no aortic valve stenosis. There is trace aortic regurgitation. Tricuspid Valve: The tricuspid valve is normal in structure and function. There is mild tricuspid regurgitation. The right ventricular systolic pressure is estimated to be at least 27 mmHg based on an estimated right atrial pressure of 3 mm Hg. Pulmonic Valve: The pulmonic valve leaflets are thin and pliable; valve motion is normal. There is trace pulmonic regurgitation. There is no other significant valvular heart disease. Great Vessels: The aortic root is normal size. Prominent calcification is noted in the aortic root. The dimensions of the ascending aorta are normal. The IVC is of normal diameter and collapses greater than 50% with a sniff. This suggests a low right atrial pressure of 3 mm Hg. Pericardium/ Pleura There is no pericardial effusion. There is no pleural effusion. MMode/2D Measurements & Calculations LVIDd: 4.5 cm LVOT diam: 2.0 cm LVIDs: 2.7 cm Ao root diam: 2.7 cm FS: 40.0 % asc Aorta Diam: 2.8 cm EPSS: 0.69 cm Ao Arch Diam (Prox Trans): 2.3 cm IVSd: 0.87 cm LVPWd: 0.79 cm LV aguirre. diameter/BSA (cm/m^2): 2.4 LV sys. diameter/BSA (cm/m^2): 1.5 LA A2 area: 21.7 cm2 RA long axis: 4.3 cm LA A4 area: 18.4 cm2 RA area: 13.5 cm2 LA length (vol): 5.2 cm RA vol: 35.7 ml LA vol: 65.2 ml RA : 19.5 ml/m2 LA vol index: 35.6 ml/m2 IVC diam: 1.0 cm RVD1 (basal): 3.3 cm TAPSE: 2.4 cm Doppler Measurements & Calculations Ao V2 max: 147.4 cm/sec LVOT Max Bob: 124.6 cm/sec Ao V2 mean: 103.2 cm/sec LV V1 max P.2 mmHg Ao max P.7 mmHg LV V1 VTI: 22.0 cm Ao mean P.7 mmHg JESSICA(I,D): 2.1 cm2 Ao V2 VTI: 32.2 cm JESSICA(V,D): 2.6 cm2 sev ratio: 0.68 JESSICA indexed to BSA (cm^2/m^2): 1.1 MV E max bob: 67.5 cm/sec TR max bob: 246.2 cm/sec MV A max bob: 80.5 cm/sec TR max P.2 mmHg MV E/A: 0.84 PA V2 max: 64.6 cm/sec Med Peak E' Bob: 5.9 cm/sec PA V2 mean: 40.1 cm/sec E/E' med: 11.4 PA mean P.77 mmHg Lat Peak E' Bob: 7.5 cm/sec PA pr(Accel): 7.1 mmHg E/E' lat: 9.0 E/e' average: 10.2 MV dec time: 0.26 sec SV(LVOT): 67.4 ml Reading Physician:11:22 AM
== END ==
PROVIDERS: PCP Nurse Practitioner Family; Referring Provider Family Medicine; Visit Provider Family Medicine
DX: R53.83 Other fatigue (principal); R05 Cough
CPT/HCPCS: 93306; Q9957

== ENCOUNTER → 2020-06-24 11:09 | Outpatient (CLI) | payer MEDICARE, OTHER, SELFPAY ==
[2020-06-24 12:29] LABS: COVID19 -Nasal RAPID Negative (Negative)
== END ==
PROVIDERS: Family Medicine; PCP Nurse Practitioner Family; Visit Provider Internal Medicine
DX: Z01.812 Encounter for preprocedural laboratory examination (principal); Z20.822 Contact with and (suspected) exposure to COVID-19
CPT/HCPCS: 87635; C9803

== ENCOUNTER → 2020-06-25 11:23 | Outpatient (CLI) | payer MEDICARE, OTHER, SELFPAY ==
--- NOTE | 2020-07-01 10:39 | PM.PFT.1 ---
Pulmonary Function Test Referral & Results Date Patient Seen: 06/25/20 Requesting provider: Britany Beavers Results: The spirometry demonstrates an FVC of 2.93 L which is 100% of predicted. The FEV1 was measured at 2.32 L which is 105% of predicted. The FEV1/FVC ratio was 79 which is 104% of predicted. Following the administration of bronchodilator there was no appreciable change to above normal numbers. Lung volumes show an SVC of 2.86 L which is 101% of predicted. The diffusing capacity was measured at 19.51 which is 80% of predicted. The maximum voluntary ventilation was reduced Interpretation: This study demonstrates normal spirometry. There is a reduction in maximum voluntary ventilation which could be consistent with neuromuscular disease Clinical correlation suggested
== END ==
PROVIDERS: PCP Nurse Practitioner Family; Referring Provider Nurse Practitioner Family; Visit Provider Nurse Practitioner Family
DX: R05 Cough (principal); J45.909 Unspecified asthma, uncomplicated
CPT/HCPCS: 94060; 94726; 94729

== ENCOUNTER 2020-07-11 16:52 | Emergency (ER) | payer MEDICARE, OTHER, SELFPAY ==
[2020-07-11 16:56] VITALS: BP 174/95; PULSE 72; RESP 15; TEMP 36.9; O2SAT 98
--- NOTE | 2020-07-11 17:02 | PC.NURSE ---
brianda reports no covid symptoms. here today for covid test pre procedure, glacoma surgery on monday. provider examined patient in triage room.
--- NOTE | 2020-07-11 17:08 | PC.NURSE ---
provider discharged patient from Triage. stated we will call with covid result when it is resulted. Patient requested we leave a message at
[2020-07-11 17:34] LABS: COVID19 -Nasal RAPID Negative (Negative)
--- NOTE | 2020-07-11 17:36 | PC.NURSE ---
CALLED PATIENT WITH NEGATIVE COVID RESULT. LEFT MESSAGE AT NUMBER PROVIDED AT PATIENT REQUEST.
--- NOTE | 2020-07-11 18:32 | ED.RECABL ---
HPI - Recheck/Abnormal Lab/Rx General Chief Complaint: Recheck/Abnormal Lab/Rx Stated Complaint: needs covid test Time Seen by Provider: 07/11/20 17:01 Source: patient Mode of arrival: Ambulatory Limitations: no limitations History of Present Illness HPI narrative: 74-year-old female nonsmoker with noncontributory medical history presents to the emergency department with a chief complaint of requesting a COVID test for an upcoming cataract surgery. She has no symptoms whatsoever and is here merely because it is her only option. She has no headache, runny nose, sneezing, sore throat, cough. She has no chest pain or shortness of breath. She has had no nausea, vomiting or diarrhea. She has not been exposed to any persons known or suspicious for COVID MD complaint: other Associated symptoms: none Related Data Home Medications Medication Instructions Recorded Confirmed estradiol VAGINAL 04/29/20 04/29/20 pantoprazole 40 mg tablet,delayed mg PO 04/29/20 04/29/20 release Previous Rx's Medication Instructions Recorded fluticasone 250 mcg-salmeterol 50 1 inh INHALATION BID #60 ea 04/29/20 mcg/dose blistr powdr for inhalation albuterol sulfate 90 mcg/actuation 2 puff INHALATION Q6H PRN #8 gram 05/04/20 aerosol inhaler benzonatate 100 mg capsule 100 mg PO TID PRN #30 cap 05/04/20 raloxifene 60 mg tablet 60 mg PO DAILY #30 tab 05/11/20 benzonatate 100 mg capsule 100 mg PO BID-TID PRN #30 cap 05/12/20 pravastatin 20 mg tablet 20 mg PO DAILY #90 tab 06/18/20 Allergies Allergy/AdvReac Type Severity Reaction Status Date / Time No Known Drug Allergies Allergy Verified 07/11/20 17:01 Review of Systems Constitutional Constitutional: Denies body ache(s), Denies chills and Denies fever(s) ENT Ears, Nose, Mouth, and Throat: Denies sore throat Cardiovascular Cardiovascular: Denies dyspnea Respiratory Respiratory: Denies cough and Denies dyspnea Gastrointestinal Gastrointestinal: Denies nausea and Denies vomiting Patient History Medical History Bunion Chronic cough Degeneration of intervertebral disc of lumbar region (09/23/15) Degenerative disc disease (Unknown) Depression (Unknown) Dysphagia (10/2019) Encounter for screening colonoscopy Fatigue GERD with esophagitis (02/2020) Hearing loss (~2017) Hemangioma of vertebral body (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 Grandfather No problems noted. Grandmother No problems noted. Social History Smoking Status: Former smoker second hand exposure: Yes alcohol intake: current substance use type: former substance user Smoking Status: Former smoker alcohol intake frequency: 0-2 drinks per day Substance Use Type: does not use Exam Narrative Exam Narrative: GEN: AOx3 and in no distress EYES: Pupils are equal, round, and reactive to light and accommodation. Extraoccular muscles are intact bilaterally. CHEST: Lungs are clear to auscultation bilaterally and free of wheezes, rales, or rhonchi. Heart rate is regular rhythm, there are no murmurs, clicks, rubs, or gallops ABD: Abdomen is soft and nontender. There is no guarding or rebound. Bowel sounds are normal in all 4 quadrants. There is no mass or organomegaly. EXT: Full painless ROM of all extremities with no loss of sensation or strength. SKIN: Warm, pink, and dry. No erythema or rash of visualized skin Initial Vital Signs Initial Vital Signs: Vital Signs Temperature 98.5 F 07/11/20 16:56 Pulse Rate 72 07/11/20 16:56 Respiratory Rate 15 07/11/20 16:56 Blood Pressure 174/95 H 07/11/20 16:56 Pulse Oximetry 98 07/11/20 16:56 Course Orders Ordered: ED Orders 07/11/20 17:00 COVID19 Stat Vital Signs Vital signs: Vital Signs - 8 hr 07/11/20 16:56 Temperature 98.5 F Pulse Rate 72 Respiratory Rate 15 Blood Pressure 174/95 H Pulse Oximetry 98 MDM - Recheck/Abnormal Lab/Rx Lab Data Labs: Lab Results 07/11/20 Range/Units 17:00 SARS-CoV-2 (PCR) Negative (Negative) MDM Narrative Medical decision making narrative: medical screening exam performed. No evidence of any life threatening condition. Patient recognizes and appreciates the brief nature of this visit. I will call her at home with result of test. Discharge Plan Departure Patient Disposition: Home Clinical Impression: Encounter for medical screening examination Bilateral cataracts Qualifiers: Cataract type: unspecified Qualified Code(s): H26.9 - Unspecified cataract Activity Restrictions/Additional Instructions: *You have been diagnosed with [medical screening exam, encounter for COVID swab] *What to do: * continue to take your routine medications as directed. * follow-up as planned for your upcoming surgery. We will call you with the results of your COVID swab *Return to ER if you should have any new, worsening or concerning symptoms Prescriptions: No Action benzonatate [Tessalon Perles] 100 mg capsule 100 mg PO TID PRN (Reason: cough) Qty: 30 RF: 1 albuterol sulfate 90 mcg/actuation HFA aerosol inhaler 2 puff INHALATION Q6H PRN (Reason: shortness of breath or wheezing) Qty: 8 RF: 1 raloxifene 60 mg tablet 60 mg PO DAILY Qty: 30 RF: 1 pravastatin 20 mg tablet 20 mg PO DAILY Qty: 90 RF: 3 estradiol 0.01 % (0.1 mg/gram) cream vaginal RF: 0 pantoprazole 40 mg tablet,delayed release (DR/EC) PO RF: 0 fluticasone propion-salmeterol [Advair Diskus] 250-50 mcg/dose blister with device 1 inh inhalation BID Qty: 60 RF: 0 benzonatate [Tessalon Perles] 100 mg capsule 100 mg PO BID-TID PRN (Reason: cough) Qty: 30 RF: 1 Referrals: Topher Beavers ARNP [Primary Care Provider] -
== END 2020-07-11 17:10 | disposition home or self-care (01) ==
PROVIDERS: Emergency Provider Emergency Medicine; PCP Nurse Practitioner Family
DX: Z20.822 Contact with and (suspected) exposure to COVID-19 (principal); H26.9 Unspecified cataract
CPT/HCPCS: 87635; 99281; 99282; C9803

== ENCOUNTER 2020-07-14 07:25 | Day surgery (SDC) | payer MEDICARE, OTHER, SELFPAY ==
[2020-07-14] MEDS: PROPARACAINE 0.5% OPHTH SOL 2 DROPS EYE-OP (07:43)
[2020-07-14] MEDS: CATARACT EYE COMPOUND (10 DROPS/SYRINGE) 3 DROPS EYE-OP (07:44)
[2020-07-14 07:50] VITALS: BP 139/86; PULSE 74; RESP 16; TEMP 36.2; O2SAT 98; BMI 29.2
--- NOTE | 2020-07-14 09:02 | P.OP_ITS ---
Operative Date/Time/Diagnoses Pre-op diagnosis: Nuclear Cataract Left eye Post-op diagnosis: same Procedure & Clinicians Same procedure as scheduled: Yes Surgeon: Gene Wilkerson Anesthesia Type: MAC +/- and Sedation Operative Notes Procedure in detail: Patient brought to the operating suite. Tetracaine drops placed in the left eye. Patient was prepped and draped in sterile manner. Wire lid speculum was placed in the eye. Betadine drops were placed on the eye. This was irrigated. Lidocaine jelly was placed on the eye. A paracentesis port was created with a side-port blade. 0.1 mL 1% preservative free lidocaine was injected into the anterior chamber. The anterior chamber was deepened with viscoelastic. 2.6 mm keratome was used to create a temporal clear corneal incision. Cystotome and Utrata forceps were used to create continuous tear capsulorrhexis. Balanced salt solution was used to hydro dissect the nucleus. The phacoemulsification handpiece was inserted and the nucleus was removed using the stop and chop technique. The irrigation aspiration handpiece was inserted and the remaining cortex was removed. Anterior chamber was deepened with viscoe lastic. An Yu [id number] intraocular lens with a power of 24.0 was injected into the capsular bag. Irrigation aspiration handpiece was inserted and the remaining viscoelastic was removed. Incision was hydrated with balanced salt solution and found to be leak free with pressure with Weck-Bisi sponges. 0.1 mL Vigamox injected anterior chamber. 0.3 mL Kenalog 10 mg was injected subconjunctivally. Lid speculum was removed. The patient left the operating room in excellent condition. Complications: none Post-operative Condition: stable Disposition: same day surgery
--- NOTE | 2020-07-14 09:02 | PM.PREOP ---
Pre-operative Note Interval Note History & Physical reviewed/Exam performed by Physician: Yes Changes to H&P: No
[2020-07-14] MEDS: LIDOCAINE JELLY 2% 5 ML 1 APPLIC TOP (09:19)
[2020-07-14] MEDS: CHONDROIDTIN/SOD HYALURONATE 1.05 ML SYRINGE INTRAOCULA (09:19)
[2020-07-14] MEDS: TRIAMCINOLONE 50 MG/5 ML VIAL INJ (09:20)
[2020-07-14] MEDS: MOXIFLOXACIN INJ 5 MG/ML VIAL EYE-OP (09:20)
[2020-07-14] MEDS: TETRACAINE 0.5% OPHTH DROPS 4 ML 2 DROPS EYE-OP (09:20)
[2020-07-14] MEDS: PHENYLEPHRINE/LIDOCAINE VIAL (OR) 0.2 ML EYE-OP (09:20)
[2020-07-14] MEDS: BALANCED SALT IRRIG SOLN NO.2 500 ML, EPINEPHrine 1 MG IRR (09:21)
[2020-07-14 09:43] VITALS: BP 134/88; PULSE 68; RESP 16; TEMP 36.3; O2SAT 97
== END 2020-07-14 09:44 | disposition home or self-care (01) ==
PROVIDERS: PCP Nurse Practitioner Family; Referring Provider Ophthalmology; Visit Provider Ophthalmology
PROC: (CPT 66984; principal; 2020-07-14 09:15)
DX: H25.12 Age-related nuclear cataract, left eye (principal)
CPT/HCPCS: 66984; J0171; J2250; J3010; J3301

== ENCOUNTER → 2020-07-27 15:17 | Outpatient (CLI) | payer MEDICARE, OTHER, SELFPAY ==
[2020-07-27 16:50] LABS: COVID19 -Nasal RAPID Negative (Negative)
== END ==
PROVIDERS: PCP Nurse Practitioner Family; Visit Provider Nurse Practitioner
DX: Z01.812 Encounter for preprocedural laboratory examination (principal); Z20.822 Contact with and (suspected) exposure to COVID-19
CPT/HCPCS: 87635; C9803

== ENCOUNTER 2020-07-28 08:05 | Day surgery (SDC) | payer MEDICARE, OTHER, SELFPAY ==
[2020-07-28] MEDS: PROPARACAINE 0.5% OPHTH SOL 2 DROPS EYE-OP (08:38)
[2020-07-28] MEDS: CATARACT EYE COMPOUND (10 DROPS/SYRINGE) 3 DROPS EYE-OP (08:39)
[2020-07-28 08:42] VITALS: BP 151/88; PULSE 72; RESP 16; TEMP 37.1; O2SAT 98; BMI 29.2
--- NOTE | 2020-07-28 09:33 | PM.PREOP ---
Pre-operative Note Interval Note History & Physical reviewed/Exam performed by Physician: Yes Changes to H&P: No
--- NOTE | 2020-07-28 09:33 | PM.OP.1 ---
Operative Date/Time/Diagnoses Pre-op diagnosis: Nuclear cataract right eye Procedure & Clinicians Procedure: Cataract Surgery Same procedure as scheduled: Yes Surgeon: Gene Wilkerson Anesthesia Type: MAC +/- and Sedation Operative Notes Procedure in detail: Patient brought to the operating suite. Tetracaine drops placed in the right eye. Patient was prepped and draped in sterile manner. Wire lid speculum was placed in the eye. Betadine drops were placed on the eye. This was irrigated. Lidocaine jelly was placed on the eye. A paracentesis port was created with a side-port blade. 0.1 mL 1% preservative free lidocaine was injected into the anterior chamber. The anterior chamber was deepened with viscoelastic. 2.6 mm keratome was used to create a temporal clear corneal incision. Cystotome and Utrata forceps were used to create continuous tear capsulorrhexis. Balanced salt solution was used to hydro dissect the nucleus. The phacoemulsification handpiece was inserted and the nucleus was removed using the stop and chop technique. The irrigation aspiration handpiece was inserted and the remaining cortex was removed. Anterior chamber was deepened with viscoelastic. An Yu ZCB00 intraocular lens with a power of 24.0 was injected into the capsular bag. Irrigation aspiration handpiece was inserted and the remaining viscoelastic was removed. Incision was hydrated with balanced salt solution and found to be leak free with pressure with Weck-Bisi sponges. 0.1 mL Vigamox injected anterior chamber. 0.3 mL Kenalog 10 mg was injected subconjunctivally. Lid speculum was removed. The patient left the operating room in excellent condition. Complications: none Post-operative Condition: stable Disposition: same day surgery
[2020-07-28] MEDS: LIDOCAINE JELLY 2% 5 ML 1 APPLIC TOP (09:51)
[2020-07-28] MEDS: PHENYLEPHRINE/LIDOCAINE VIAL (OR) 0.2 ML EYE-OP (09:51)
[2020-07-28] MEDS: MOXIFLOXACIN INJ 5 MG/ML VIAL EYE-OP (09:51)
[2020-07-28] MEDS: CHONDROIDTIN/SOD HYALURONATE 1.05 ML SYRINGE INTRAOCULA (09:51)
[2020-07-28] MEDS: TRIAMCINOLONE 50 MG/5 ML VIAL INJ (09:52)
[2020-07-28] MEDS: BALANCED SALT IRRIG SOLN NO.2 500 ML, EPINEPHrine 1 MG IRR (09:52)
[2020-07-28] MEDS: TETRACAINE 0.5% OPHTH DROPS 4 ML 2 DROPS EYE-OP (09:52)
[2020-07-28 10:04] VITALS: BP 130/87; PULSE 70; RESP 16; TEMP 36.8; O2SAT 98
--- NOTE | 2020-07-28 10:20 | SUR.PHASEII ---
Patient appears very drowsy on arrival to Phase 2; denies pain or nausea; vss. Coffee and crackers provided. Jewelry returned to patient from [facility] draw.
== END 2020-07-28 10:31 | disposition home or self-care (01) ==
PROVIDERS: PCP Nurse Practitioner Family; Referring Provider Ophthalmology; Visit Provider Ophthalmology
PROC: (CPT 66984; principal; 2020-07-28 09:45)
DX: H25.11 Age-related nuclear cataract, right eye (principal)
CPT/HCPCS: 66984; J0171; J2250; J2704; J3301

== ENCOUNTER 2020-09-28 08:15 | Outpatient (RCR) | payer MEDICARE, OTHER, SELFPAY ==
--- NOTE | 2020-09-02 16:21 | PT.OIE ---
Current Diagnoses Stress incontinence (female) (male) (09/02/20) Urge incontinence (09/02/20) Past Medical History (Last Reviewed 05/16/20 @ 19:28 by Shantanu Wood DO) Bunion Chronic cough Degeneration of intervertebral disc of lumbar region (09/23/15) Degenerative disc disease (Unknown) Depression (Unknown) Dysphagia (10/2019) Encounter for screening colonoscopy Fatigue GERD with esophagitis (02/2020) Hearing loss (~2016) Hemangioma of vertebral body (09/23/15) History of malignant neoplasm of breast (01/05/15) Hx of breast cancer (2008) Lipoma of axilla (Unknown) Mixed hyperlipidemia Osteopenia (~2015) Osteoporosis (~2015) Reactive airway disease Skin exam, screening for cancer 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) Stress incontinence (2007) Past Surgical History (Last Reviewed 05/16/20 @ 19:28 by Shantanu Wood DO) History of arthroplasty of left hip (05/2017) History of lumpectomy Status post hysterectomy Visit Care Team Role Provider Type SYL Mcelroy Primary Care Provider Advanced Taxation Inspector Specialty: Family Practice Address: [address] [place] [address], [id number] Email: [email or web address] Jose Durán MD Family Provider Non-Staff Specialty: SEMICONDUCTOR PACKAGE SYMBOL STAMPER Address: [address] [place] [address], [phone] Email: Keiko Thomas PA-C Attending Provider Non-Staff Referring Provider Specialty: Urology Address: [address] [place] [address], [id number] Email: Physical Therapy Initial Evaluation PT-OP-A Visit Information Start: 09/02/20 07:35 Freq: Status: Active Protocol: Document 09/02/20 08:15 AMB (Rec: 09/02/20 16:20 AMB [email or web address]) Out-Patient Physical Therapy Visit Information Visit Information Visit Type Initial Evaluation Visit Start Time 08:15 Visit Stop Time 09:00 Total Visit Minutes 45 Visit Number 1 PT-OP-B Current Condition Start: 09/02/20 07:35 Freq: Status: Active Protocol: Document 09/02/20 08:15 AMB (Rec: 09/02/20 08:58 AMB [id number]) Current Condition History of Current Condition Onset Date May 2020 Current Complaints urge incontinence History of Current Condition In 2019 remembers urgency. Recently had sling surgery, still has urgency, stress urinary incontinence is better . Prior hysterectomy. 2x/day wets clothes-large leak. Does see dark urine- doesn't drink enough fluids. P0. Constipation on and off. Little cough in 2019 after coming back from [place] that lasted months might have worsened things. Treatment Goals Patient/Caregiver Goals Avoid large leaks Prior Functional Status Baseline Function- ADL's Independent Baseline Function- Mobility Independent Personal Factors Other Personal Factors That May Effect Hip replacement in 2015, 3 Therapy/Recovery falls in last 12 months, stage 0 breast cancer in 2008, back pain PT-OP-C Subjective Start: 09/02/20 07:35 Freq: Status: Active Protocol: Document 09/02/20 08:15 AMB (Rec: 09/02/20 16:20 AMB [email or web address]) Patient Questionnaires Pelvic Pain and Urgency/Frequency Patient Symptom Scale Pelvic Pain Score 14 PT-OP-I Pelvic Floor Start: 09/02/20 07:35 Freq: Status: Active Protocol: Document 09/02/20 08:15 AMB (Rec: 09/02/20 16:20 AMB [email or web address]) Pelvic Floor Assessment Urine Pelvic Floor Surgery Yes Urinary Symptoms Urge Sensation Leakage Size Large Leakage Cause Urge Leaks Per Day 2 Voiding Frequency 6x/day Nocturia 1 Pelvic Clock Pelvic Clock 12-3 Atrophy Pelvic Clock 3-6 Atrophy Pelvic Clock 6-9 Atrophy Pelvic Clock 9-12 Atrophy Contraction Ability Voluntary Contraction Weak Voluntary Relaxation Weak Manual Muscle Testing Left 2 Manual Muscle Testing Right 2 Manual Muscle Testing Anterior 2 Manual Muscle Testing Posterior 3 Muscle Endurance (Seconds) 3 PT-OP-T Assessment and Plan Start: 09/02/20 07:35 Freq: Status: Active Protocol: Document 09/02/20 08:15 AMB (Rec: 09/02/20 16:20 AMB [email or web address]) Physical Therapy Assessment Rehab Potential Rehabilitation Potential Good Evaluation Complexity Number of Personal Factors/Comorbidities 3 or More Number of Body Systems Impaired 1-2 Clinical Presentation at Evaluation Stable Impairments Impairments Functional Activities,Strength Goals Three Impairment Strength Short Term Goal (STG) [place] will improve her pelvic floor strength to hold for 10 seconds. STG Duration 4 weeks Shelter Goal (LTG) [place] will improve her pelvic floor strength so that she can hold a contraction while lifting 10 pounds from the floor to waist height. LTG Duration 8 weeks Two Impairment HEP Short Term Goal (STG) [place] will be independent and consistent with a HEP for pelvic floor strengthening. STG Duration 4 weeks One Impairment Continence Short Term Goal (STG) [place] will decrease her leaking to 1x/day or less. STG Duration 4 weeks Community Education Specialist Goal (LTG) [place] will use urgency reduction techniques to decrease her leaks to 1x/week or less. LTG Duration 8 weeks Assessment Summary Assessment [place] attends physical therapy with urge incontinence s/p sling surgery. She has had urge incontinence for a long time and it was not fixed by the surgery, although her stress urinary incontinence was significantly improved. She was able to contract her pelvic floor, but did have poor endurance. She will benefit from pelvic floor strengthening and behavioral changes to decrease her urgency. Physical Therapy Plan Frequency and Duration Frequency of Treatment 1x/Week Duration of Treatment 8 weeks Plan of Care Start Date 09/02/20 Plan of Care End Date 10/28/20 Therapeutic Interventions Therapeutic Interventions Home Exercise Program,Manual Therapy,Neuromuscular Re- education,Self-Care/Home Management,Therapeutic Activities,Therapeutic Exercises Modalities Biofeedback,Electric Stimulation Next Visit Focus/Plan Next Note Type Treatment Note
--- NOTE | 2020-09-02 16:21 | PT.OPPOC ---
Physical, Occupational & Speech Therapy At [facility] Current Diagnoses Stress incontinence (female) (male) (09/02/20) Urge incontinence (09/02/20) Visit Care Team Role Provider Type SYL Mcelroy Primary Care Provider Advanced Wind Energy Mechanic Specialty: Family Practice Address: [address] [place] [address], [id number] Email: [email or web address] Jose Durán MD Family Provider Non-Staff Specialty: BUTTERMAKER Address: [address] [place] [address], [phone] Email: Keiko Thomas PA-C Attending Provider Non-Staff Referring Provider Specialty: Urology Address: [address] [place] [address], [id number] Email: Plan Of Care PT-OP-T Assessment and Plan Start: 09/02/20 07:35 Freq: Status: Active Protocol: Document 09/02/20 08:15 AMB (Rec: 09/02/20 16:20 AMB [email or web address]) Physical Therapy Assessment Rehab Potential Rehabilitation Potential Good Evaluation Complexity Number of Personal Factors/Comorbidities 3 or More Number of Body Systems Impaired 1-2 Clinical Presentation at Evaluation Stable Impairments Impairments Functional Activities,Strength Goals Three Impairment Strength Short Term Goal (STG) [place] will improve her pelvic floor strength to hold for 10 seconds. STG Duration 4 weeks Jail Goal (LTG) [place] will improve her pelvic floor strength so that she can hold a contraction while lifting 10 pounds from the floor to waist height. LTG Duration 8 weeks Two Impairment HEP Short Term Goal (STG) [place] will be independent and consistent with a HEP for pelvic floor strengthening. STG Duration 4 weeks One Impairment Continence Short Term Goal (STG) [place] will decrease her leaking to 1x/day or less. STG Duration 4 weeks Jail Goal (LTG) [place] will use urgency reduction techniques to decrease her leaks to 1x/week or less. LTG Duration 8 weeks Assessment Summary Assessment [place] attends physical therapy with urge incontinence s/p sling surgery. She has had urge incontinence for a long time and it was not fixed by the surgery, although her stress urinary incontinence was significantly improved. She was able to contract her pelvic floor, but did have poor endurance. She will benefit from pelvic floor strengthening and behavioral changes to decrease her urgency. Physical Therapy Plan Frequency and Duration Frequency of Treatment 1x/Week Duration of Treatment 8 weeks Plan of Care Start Date 09/02/20 Plan of Care End Date 10/28/20 Therapeutic Interventions Therapeutic Interventions Home Exercise Program,Manual Therapy,Neuromuscular Re- education,Self-Care/Home Management,Therapeutic Activities,Therapeutic Exercises Modalities Biofeedback,Electric Stimulation Next Visit Focus/Plan Next Note Type Treatment Note Plan of Care Dates Plan of Care Start Date 09/02/20 Plan of Care End Date 10/28/20 Electronically Signed by: Lorena Javier, PT 09/02/20 2206 Please Sign and Return: I have reviewed this Plan of Care and certify that the skilled therapy services above are required to meet the patient?s needs. Physician Signature Date Printed Name and Credentials Clinical Instructor Signature Printed Name and Credentials
--- NOTE | 2020-09-08 10:02 | PT.OTN ---
Current Diagnoses Stress incontinence (female) (male) (09/08/20) Urge incontinence (09/08/20) Physical Therapy Treatment Note PT-OP-A Visit Information Start: 09/02/20 07:35 Freq: Status: Active Protocol: Document 09/08/20 07:43 AMB (Rec: 09/08/20 08:13 AMB [id number]) Out-Patient Physical Therapy Visit Information Visit Information Visit Type Treatment Note Visit Note pt got lost around the hospital Visit Start Time 07:45 Visit Stop Time 08:15 Total Visit Minutes 30 Visit Number 2 PT-OP-B Current Condition Start: 09/02/20 07:35 Freq: Status: Active Protocol: Document 09/02/20 08:15 AMB (Rec: 09/02/20 08:58 AMB [id number]) Current Condition History of Current Condition Onset Date May 2020 Current Complaints urge incontinence History of Current Condition In 2019 remembers urgency. Recently had sling surgery, still has urgency, stress urinary incontinence is better . Prior hysterectomy. 2x/day wets clothes-large leak. Does see dark urine- doesn't drink enough fluids. P0. Constipation on and off. Little cough in 2019 after coming back from [facility] that lasted months might have worsened things. Treatment Goals Patient/Caregiver Goals Avoid large leaks Prior Functional Status Baseline Function- ADL's Independent Baseline Function- Mobility Independent Personal Factors Other Personal Factors That May Effect Hip replacement in 2015, 3 Therapy/Recovery falls in last 12 months, stage 0 breast cancer in 2008, back pain PT-OP-C Subjective Start: 09/02/20 07:35 Freq: Status: Active Protocol: Document 09/08/20 07:45 AMB (Rec: 09/08/20 10:02 AMB [email or web address]) OP-PT Subjective Patient Comments Patient Comments Pt arrived 15 minutes late, got lost in the hospital. PT-OP-I Pelvic Floor Start: 09/02/20 07:35 Freq: Status: Active Protocol: Document 09/02/20 08:15 AMB (Rec: 09/02/20 16:20 AMB [email or web address]) Pelvic Floor Assessment Urine Pelvic Floor Surgery Yes Urinary Symptoms Urge Sensation Leakage Size Large Leakage Cause Urge Leaks Per Day 2 Voiding Frequency 6x/day Nocturia 1 Pelvic Clock Pelvic Clock 12-3 Atrophy Pelvic Clock 3-6 Atrophy Pelvic Clock 6-9 Atrophy Pelvic Clock 9-12 Atrophy Contraction Ability Voluntary Contraction Weak Voluntary Relaxation Weak Manual Muscle Testing Left 2 Manual Muscle Testing Right 2 Manual Muscle Testing Anterior 2 Manual Muscle Testing Posterior 3 Muscle Endurance (Seconds) 3 PT-OP-Q Treatments Start: 09/02/20 07:35 Freq: Status: Active Protocol: Document 09/08/20 07:45 AMB (Rec: 09/08/20 10:02 AMB [email or web address]) Neuro Re-Education Treatment Other Activities 1 Details sEMG Comments quick flicks and 10 second holds with cues to breathe, relax abdominals PT-OP-T Assessment and Plan Start: 09/02/20 07:35 Freq: Status: Active Protocol: Document 09/08/20 07:43 AMB (Rec: 09/08/20 08:13 AMB [id number]) Physical Therapy Assessment Assessment Summary Assessment Quick flicks resting 9, max 25. 10 second holds Avg 7, max 17, resting 4. Pt had high resting tone to begin with, difficulty maintaining 10 second hold. Reiterated urge reduction techniques. Physical Therapy Plan Next Visit Focus/Plan Next Note Type Treatment Note Next Visit Plan Continue to work on 10 second holds.
--- NOTE | 2020-09-21 10:06 | PT.OTN ---
Current Diagnoses Stress incontinence (female) (male) (09/21/20) Urge incontinence (09/21/20) Physical Therapy Treatment Note PT-OP-A Visit Information Start: 09/02/20 07:35 Freq: Status: Active Protocol: Document 09/21/20 09:00 AMB (Rec: 09/21/20 10:06 AMB [id number]) Out-Patient Physical Therapy Visit Information Visit Information Visit Type Treatment Note Visit Start Time 09:05 Visit Stop Time 09:45 Total Visit Minutes 40 Visit Number 3 PT-OP-B Current Condition Start: 09/02/20 07:35 Freq: Status: Active Protocol: Document 09/02/20 08:15 AMB (Rec: 09/02/20 08:58 AMB [id number]) Current Condition History of Current Condition Onset Date May 2020 Current Complaints urge incontinence History of Current Condition In 2019 remembers urgency. Recently had sling surgery, still has urgency, stress urinary incontinence is better . Prior hysterectomy. 2x/day wets clothes-large leak. Does see dark urine- doesn't drink enough fluids. P0. Constipation on and off. Little cough in 2019 after coming back from [facility] that lasted months might have worsened things. Treatment Goals Patient/Caregiver Goals Avoid large leaks Prior Functional Status Baseline Function- ADL's Independent Baseline Function- Mobility Independent Personal Factors Other Personal Factors That May Effect Hip replacement in 2016, 3 Therapy/Recovery falls in last 12 months, stage 0 breast cancer in 2009, back pain PT-OP-C Subjective Start: 09/02/20 07:35 Freq: Status: Active Protocol: Document 09/21/20 09:00 AMB (Rec: 09/21/20 10:06 AMB [id number]) OP-PT Subjective Patient Comments Patient Comments Pt states she has been having difficulty finding the time and being consistent with her exercises. PT-OP-I Pelvic Floor Start: 09/02/20 07:35 Freq: Status: Active Protocol: Document 09/02/20 08:15 AMB (Rec: 09/02/20 16:20 AMB [email or web address]) Pelvic Floor Assessment Urine Pelvic Floor Surgery Yes Urinary Symptoms Urge Sensation Leakage Size Large Leakage Cause Urge Leaks Per Day 2 Voiding Frequency 6x/day Nocturia 1 Pelvic Clock Pelvic Clock 12-3 Atrophy Pelvic Clock 3-6 Atrophy Pelvic Clock 6-9 Atrophy Pelvic Clock 9-12 Atrophy Contraction Ability Voluntary Contraction Weak Voluntary Relaxation Weak Manual Muscle Testing Left 2 Manual Muscle Testing Right 2 Manual Muscle Testing Anterior 2 Manual Muscle Testing Posterior 3 Muscle Endurance (Seconds) 3 PT-OP-Q Treatments Start: 09/02/20 07:35 Freq: Status: Active Protocol: Document 09/21/20 09:00 AMB (Rec: 09/21/20 10:06 AMB [id number]) Therapeutic Exercises Supine Exercises 1 Supine Exercise Name roll in roll out Reps/Minutes 10 sec #2 band Comments 15 min Neuro Re-Education Treatment Other Activities 1 Details sEMG Comments quick flicks and 10 second holds with cues to breathe, relax abdominals PT-OP-T Assessment and Plan Start: 09/02/20 07:35 Freq: Status: Active Protocol: Document 09/21/20 09:00 AMB (Rec: 09/21/20 10:06 AMB [id number]) Physical Therapy Assessment Assessment Summary Assessment Improved ability to hold the 10 second today, so did well with roll in and roll outs, but continues to have difficulty not over using abdominals. Physical Therapy Plan Next Visit Focus/Plan Next Note Type Treatment Note Next Visit Plan Continue to work on 10 second holds.
--- NOTE | 2020-09-28 10:22 | PT.OTN ---
Current Diagnoses Stress incontinence (female) (male) (09/28/20) Urge incontinence (09/28/20) Physical Therapy Treatment Note PT-OP-A Visit Information Start: 09/02/20 07:35 Freq: Status: Active Protocol: Document 09/28/20 08:15 AMB (Rec: 09/28/20 09:00 AMB [email or web address]) Out-Patient Physical Therapy Visit Information Visit Information Visit Type Treatment Note Visit Note pt needed to leave early Visit Start Time 08:15 Visit Stop Time 08:45 Total Visit Minutes 30 Visit Number 4 PT-OP-B Current Condition Start: 09/02/20 07:35 Freq: Status: Active Protocol: Document 09/02/20 08:15 AMB (Rec: 09/02/20 08:58 AMB [id number]) Current Condition History of Current Condition Onset Date May 2020 Current Complaints urge incontinence History of Current Condition In 2019 remembers urgency. Recently had sling surgery, still has urgency, stress urinary incontinence is better . Prior hysterectomy. 2x/day wets clothes-large leak. Does see dark urine- doesn't drink enough fluids. P0. Constipation on and off. Little cough in 2019 after coming back from [facility] that lasted months might have worsened things. Treatment Goals Patient/Caregiver Goals Avoid large leaks Prior Functional Status Baseline Function- ADL's Independent Baseline Function- Mobility Independent Personal Factors Other Personal Factors That May Effect Hip replacement in 2016, 3 Therapy/Recovery falls in last 12 months, stage 0 breast cancer in 2009, back pain PT-OP-C Subjective Start: 09/02/20 07:35 Freq: Status: Active Protocol: Document 09/28/20 08:15 AMB (Rec: 09/28/20 09:00 AMB [email or web address]) OP-PT Subjective Patient Comments Patient Comments Pt continues to have difficulty finding time with exercises, but is trying. Continues to leak with laughing and have intermittent urge issues. PT-OP-I Pelvic Floor Start: 09/02/20 07:35 Freq: Status: Active Protocol: Document 09/02/20 08:15 AMB (Rec: 09/02/20 16:20 AMB [email or web address]) Pelvic Floor Assessment Urine Pelvic Floor Surgery Yes Urinary Symptoms Urge Sensation Leakage Size Large Leakage Cause Urge Leaks Per Day 2 Voiding Frequency 6x/day Nocturia 1 Pelvic Clock Pelvic Clock 12-3 Atrophy Pelvic Clock 3-6 Atrophy Pelvic Clock 6-9 Atrophy Pelvic Clock 9-12 Atrophy Contraction Ability Voluntary Contraction Weak Voluntary Relaxation Weak Manual Muscle Testing Left 2 Manual Muscle Testing Right 2 Manual Muscle Testing Anterior 2 Manual Muscle Testing Posterior 3 Muscle Endurance (Seconds) 3 PT-OP-Q Treatments Start: 09/02/20 07:35 Freq: Status: Active Protocol: Document 09/28/20 08:15 AMB (Rec: 09/28/20 10:14 AMB [id number]) Therapeutic Exercises Sitting Exercises 2 Sitting Exercise Name roll in roll out Comments cues for coordintation/timing 1 Sitting Exercise Name quick flicks in context of urge suppression Reps/Minutes 20 min Comments extensive education Standing Exercises 1 Standing Exercise Name quick flicks/long holds PT-OP-T Assessment and Plan Start: 09/02/20 07:35 Freq: Status: Active Protocol: Document 09/28/20 08:15 AMB (Rec: 09/28/20 09:00 AMB [email or web address]) Physical Therapy Assessment Assessment Summary Assessment Really worked on urge suppression techniques. Pt would like more time between sessions to really owrk on strengthening so will follow up in one month. Physical Therapy Plan Next Visit Focus/Plan Next Note Type Progress Note Next Visit Plan Recheck after 1 month break
--- NOTE | 2020-11-02 11:21 | PT.OPDS ---
Current Diagnoses Stress incontinence (female) (male) (09/28/20) Urge incontinence (09/28/20) Visit Care Team Role Provider Type SYL Mcelroy Primary Care Provider [facility] Director Specialty: Family Practice Address: [address] [place] [address], [id number] Email: [email or web address] Jose Durán MD Family Provider Non-Staff Specialty: MULE DEVELOPER Address: [address] [place] [address], [id number] Email: Keiko Thomas PA-C Attending Provider Non-Staff Referring Provider Specialty: Urology Address: [address] [place] [address], [id number] Email: Visit Number Visit Number 4 Discharge Summary PT-OP-B Current Condition Start: 09/02/20 07:35 Freq: Status: Active Protocol: Document 09/02/20 08:15 AMB (Rec: 09/02/20 08:58 AMB [id number]) Current Condition History of Current Condition Onset Date May 2020 Current Complaints urge incontinence History of Current Condition In 2019 remembers urgency. Recently had sling surgery, still has urgency, stress urinary incontinence is better . Prior hysterectomy. 2x/day wets clothes-large leak. Does see dark urine- doesn't drink enough fluids. P0. Constipation on and off. Little cough in 2019 after coming back from [place] that lasted months might have worsened things. Treatment Goals Patient/Caregiver Goals Avoid large leaks Prior Functional Status Baseline Function- ADL's Independent Baseline Function- Mobility Independent Personal Factors Other Personal Factors That May Effect Hip replacement in 2016, 3 Therapy/Recovery falls in last 12 months, stage 0 breast cancer in 2009, back pain PT-OP-C Subjective Start: 09/02/20 07:35 Freq: Status: Active Protocol: Document 09/28/20 08:15 AMB (Rec: 09/28/20 09:00 AMB [email or web address]) OP-PT Subjective Patient Comments Patient Comments Pt continues to have difficulty finding time with exercises, but is trying. Continues to leak with laughing and have intermittent urge issues. PT-OP-I Pelvic Floor Start: 09/02/20 07:35 Freq: Status: Active Protocol: Document 09/02/20 08:15 AMB (Rec: 09/02/20 16:20 AMB [email or web address]) Pelvic Floor Assessment Urine Pelvic Floor Surgery Yes Urinary Symptoms Urge Sensation Leakage Size Large Leakage Cause Urge Leaks Per Day 2 Voiding Frequency 6x/day Nocturia 1 Pelvic Clock Pelvic Clock 12-3 Atrophy Pelvic Clock 3-6 Atrophy Pelvic Clock 6-9 Atrophy Pelvic Clock 9-12 Atrophy Contraction Ability Voluntary Contraction Weak Voluntary Relaxation Weak Manual Muscle Testing Left 2 Manual Muscle Testing Right 2 Manual Muscle Testing Anterior 2 Manual Muscle Testing Posterior 3 Muscle Endurance (Seconds) 3 PT-OP-T Assessment and Plan Start: 09/02/20 07:35 Freq: Status: Active Protocol: Document 11/02/20 11:19 AMB (Rec: 11/02/20 11:21 AMB [email or web address]) Physical Therapy Assessment Assessment Summary Assessment Pt called in to discuss case. Leaking with laughing has improved, but she is continuing to have urgency. She is only able to do her exercises 1x/day and wondering if that is enough. Encouraged pt to do exercises as she can, and to follow up with MD if there is anything else she can do for urgency re : medication as she thinks that would be easier to manage than exercise at this time.
== END 2020-11-06 08:12 | disposition home or self-care (01) ==
LOC: PHYS 08:15
PROVIDERS: Family Provider Obstetrics & Gynecology Maternal & Fetal Medicine; PCP Nurse Practitioner Family; Referring Provider Urology; Visit Provider Urology
DX: N39.3 Stress incontinence (female) (male) (principal); N39.41 Urge incontinence
CPT/HCPCS: 97110; 97112; 97161

== ENCOUNTER → 2021-01-06 15:54 | Outpatient (CLI) | payer MEDICARE, OTHER, SELFPAY ==
[2021-01-06 16:37] LABS: COVID19 -Nasal RAPID Negative (Negative)
== END ==
PROVIDERS: Family Provider Obstetrics & Gynecology Maternal & Fetal Medicine; PCP Nurse Practitioner Family; Referring Provider Student in an Organized Health Care Education/Training Program; Visit Provider Student in an Organized Health Care Education/Training Program
DX: Z20.822 Contact with and (suspected) exposure to COVID-19 (principal)
CPT/HCPCS: 87635; C9803

== ENCOUNTER → 2021-12-30 10:16 | Outpatient (CLI) | payer MEDICARE, OTHER, SELFPAY ==
[2021-12-30 11:31] LABS: Appearance Urine UA CLEAR; Bilirubin Urine UA NEGATIVE (NEGATIVE); Color Urine UA YELLOW; Glucose Urine UA NEGATIVE (Negative); Ketones Urine UA NEGATIVE (NEGATIVE); Leukocyte Esterase Urine UA 2+ (NEGATIVE); Nitrite Urine UA NEGATIVE (Negative); Occult Blood Urine UA NEGATIVE (Negative); Protein Urine UA NEGATIVE (Negative); Urobilinogen Urine UA 0.2 E.U./dL (0.2)
[2021-12-30 11:43] LABS: Bacteria Urine Occasional (0-1); RBC Urine None Seen (0-5/HPF); Squamous Epithelial Cell Urine 1-5 /HPF (0-5/HPF); WBC Urine 5-10/HPF (0-5/HPF)
[2021-12-30 11:44] LABS: Culture Indicated Urine Specimen Cultured
== END ==
PROVIDERS: Family Provider Obstetrics & Gynecology Maternal & Fetal Medicine; PCP Pediatrics; Referring Provider Pediatrics; Visit Provider Pediatrics
DX: R30.0 Dysuria (principal)
CPT/HCPCS: 81001; 87077; 87086; 87186

== ENCOUNTER → 2022-02-03 10:33 | Outpatient (CLI) | payer MEDICARE, OTHER, SELFPAY ==
--- NOTE | 2022-02-24 14:51 | PM.CARDMON.1 ---
Frickertron Checker Report Referral & Results Date Patient Seen: 02/03/22 Requesting provider: Bernardo Valdes Indication: Palpitations Duration of monitoring (days): 7 Diary information: There were 3 patient triggered events and 1 patient diary entry Patient triggered events were associated with sinus rhythm and PVCs Patient diary events apparently could not be coordinated with any findings on the tracings Data: Minimum heart rate identified was 56 beats per minute at 02:06 on 02/04/2022 Maximum heart rate was sinus and was 132 beats per minute at 15:11 on 02/05/2022 Less than 1% of identified beats were ventricular or supraventricular ectopic in origin, which would classify them as rare. There were 2 runs of SVT fastest being the 4 beat run at a rate of 129 beats per minute which suggest possible atrial tachycardia rather than true SVT. 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 No clear connection between patient reported symptoms any dysrhythmia although based on triggered events it is possible that PVCs were source of patient's symptoms Clinical correlation suggested
== END ==
PROVIDERS: Family Provider Obstetrics & Gynecology Maternal & Fetal Medicine; PCP Pediatrics; Referring Provider Pediatrics; Visit Provider Pediatrics
DX: R00.2 Palpitations (principal)
CPT/HCPCS: 93242; 93244

== ENCOUNTER → 2022-03-31 15:50 | Outpatient (CLI) | payer MEDICARE, OTHER, SELFPAY ==
--- NOTE | 2022-03-31 15:51 | DI.MG.S_ITS ---
BILATERAL DIGITAL SCREENING MAMMOGRAM 3D/2D WITH CAD: 03/31/2022 CLINICAL: Routine screening. Routine screening. Personal history of right breast cancer. Family history of breast cancer. Comparison is made to exams dated: 05/21/2020 mammogram and 04/07/2018 mammogram - [facility]. Both breasts are heterogeneously dense, which may obscure small masses (category c / 51-75% glandular tissue). Current study was also evaluated with a Computer Aided Detection (CAD) system. There are new grouped calcifications in the right breast at 12 o'clock middle depth. No other significant masses, calcifications, or other findings are seen in either breast. IMPRESSION: INCOMPLETE: NEEDS ADDITIONAL IMAGING EVALUATION The new grouped calcifications in the right breast are indeterminate. Magnification, lateral, and additional views are recommended. This exam was interpreted at Station ID: [id number]. NOTE: For mammograms, a report in lay terms will be sent to the patient. Approximately 15% of breast malignancies will not be visualized mammographically. In the management of a palpable breast mass, a negative mammogram must not discourage biopsy of a clinically suspicious lesion. Electronically Signed By: Carlos harp/delfin:04/01/2022 11:53:21 letter sent: Additional Imaging Needed ACR BI-RADS Category 0: Incomplete 3340F
== END ==
PROVIDERS: Family Provider Obstetrics & Gynecology Maternal & Fetal Medicine; PCP Family Medicine; Referring Provider Family Medicine; Visit Provider Family Medicine
DX: Z12.31 Encounter for screening mammogram for malignant neoplasm of breast (principal); Z85.3 Personal history of malignant neoplasm of breast; Z80.3 Family history of malignant neoplasm of breast
CPT/HCPCS: 77063; 77067

== ENCOUNTER → 2022-04-01 08:22 | Outpatient (CLI) | payer MEDICARE, OTHER, SELFPAY ==
[2022-04-01 09:52] LABS: Add Manual Diff / Slide Review NO; Basophils Absolute Auto 0 /uL (0-100); Basophils Percent Auto 0.5 % (0-2); Eosinophils Absolute Auto 200 /uL (0-450); Eosinophils Percent Auto 3.2 % (2-4); Hematocrit 42.5 % (36-46); Hemoglobin 14.2 g/dL (12.0-16.0); Lymphocytes Absolute Auto 1800 /uL (1100-4500); Mean Corpuscular HGB Conc 33.5 % (30-36); Mean Corpuscular Hemoglobin 29.3 PG (26-34); Mean Corpuscular Volume 87.5 fL (80-100); Monocytes Absolute Auto 400 /uL (0-900); Monocytes Percent Auto 7.3 % (3-14); Neutrophils Absolute Auto 2900 /uL (1500-7000); Platelet Count 247 X10^3/uL (150-400); Red Blood Cell Count 4.86 X10^6/uL (4.0-5.2); White Blood Cell Count 5.3 X10^3/uL (4.5-11.0)
[2022-04-01 10:07] LABS: Alanine Aminotransferase 32 IU/L (<35); Albumin 4.2 g/dL (3.5-5.0); Albumin Globulin Ratio 1.5 (1.0-2.8); Alkaline Phosphatase 99 U/L (38-126); Aspartate Aminotransferase 31 IU/L (14-36); BUN Creatinine Ratio 23.4 (6-22); Bilirubin Total 0.5 mg/dL (0.2-1.3); Blood Urea Nitrogen 18 mg/dL (7-17); Calcium 10.3 mg/dL (8.4-10.2); Carbon Dioxide 32 mmol/L (22-32); Chloride 100 mmol/L (98-107); Cholesterol 277 mg/dL (140-199); Estimated Glomerular Filt Rate > 60 mL/min (>60); Globulin 2.8 g/dL (1.7-4.1); Glucose 94 mg/dL (80-110); HEMOLYSIS < 15 (0-50); Potassium 3.6 mmol/L (3.4-5.1); Sodium 138 mmol/L (137-145); Triglycerides 73 mg/dL (35-150)
[2022-04-01 10:16] LABS: HDL Cholesterol 146 mg/dL (40-60); LDL Cholesterol Calculated 116 mg/dL (<100)
[2022-04-01 10:42] LABS: TSH w/ Reflex to FT4 1.54 uIU/mL (0.47-4.68)
== END ==
PROVIDERS: Family Provider Obstetrics & Gynecology Maternal & Fetal Medicine; PCP Family Medicine; Referring Provider Pediatrics; Visit Provider Pediatrics
DX: E78.2 Mixed hyperlipidemia (principal); R53.83 Other fatigue
CPT/HCPCS: 36415; 80053; 80061; 84443; 85025

== ENCOUNTER → 2022-04-14 12:00 | Outpatient (CLI) | payer MEDICARE, OTHER, SELFPAY ==
--- NOTE | 2022-04-14 12:01 | DI.MG.S_ITS ---
UNILATERAL RIGHT DIGITAL DIAGNOSTIC MAMMOGRAM 3D/2D WITH ADDITIONAL VIEWS: 04/14/2022 CLINICAL: Additional evaluation requested from prior study. Comparison is made to exams dated: 03/31/2022 mammogram, 05/21/2020 mammogram, and 04/07/2018 mammogram - [facility]. The right breast is heterogeneously dense, which may obscure small masses (category c / 51-75% glandular tissue). There are new grouped, linear coarse heterogeneous calcifications in the right breast at 12 o'clock middle depth. These are confirmed in additional views. No other significant masses or calcifications are seen in the breast. IMPRESSION: SUSPICIOUS OF MALIGNANCY The new grouped linear coarse heterogeneous calcifications in the right breast are suspicious of malignancy. A stereotactic biopsy is recommended. Findings and recommendations were discussed with the patient by Dr. Leroy during today's examination. This exam was interpreted at Station ID: [id number]. NOTE: For mammograms, a report in lay terms will be sent to the patient. Approximately 15% of breast malignancies will not be visualized mammographically. In the management of a palpable breast mass, a negative mammogram must not discourage biopsy of a clinically suspicious lesion. Electronically Signed By: Shadi Samuel M.D. aty/:04/14/2022 12:56:19 letter sent: Biopsy Required ACR BI-RADS Category 4: Suspicious abnormality 3344F
== END ==
PROVIDERS: Family Provider Obstetrics & Gynecology Maternal & Fetal Medicine; PCP Family Medicine; Referring Provider Family Medicine; Visit Provider Family Medicine
DX: R92.8 Other abnormal and inconclusive findings on diagnostic imaging of breast (principal); R92.1 Mammographic calcification found on diagnostic imaging of breast
CPT/HCPCS: 77065; G0279

== ENCOUNTER → 2022-11-07 13:54 | Outpatient (CLI) | payer MEDICARE, OTHER, SELFPAY ==
--- NOTE | 2022-11-07 14:16 | DI.DEXA.S_ITS ---
Bone Density Report Name: DESTINY GIL Age: 77 Sex: Female Ethnicity: White Date of : 1945 Indication: osteopenia; monitoring treatment; Referring Provider: ROSSANA REYNOSO Study: Bone densitometry was performed. Exam Date: November 07, 2022 Accession number: [id number] Bone Density: Region BMD T-score Z-score Classification AP Spine(L1-L4) 0.929 -1.1 1.3 Osteopenia Femoral Neck (Right) 0.578 -2.4 -0.4 Osteopenia Total Hip (Right) 0.707 -1.9 -0.1 Osteopenia World Health Organization criteria for BMD impression classify patients as: Normal (T-score at or above -1.0), Osteopenia (T-score between -1.0 and -2.5), or Osteoporosis (T-score at or below -2.5). 10-year Fracture Risk: FRAX not reported because: Treated for osteoporosis Previous Exams: -- Region Exam Age BMD T-score BMD Change BMD Change Date g/cm2 vs Baseline vs Previous -- AP Spine (L1-L4) 11/07/2022 77 0.929 -1.1 0.007 (0.7%)# 0.007 (0.7%)# 05/21/2020 74 0.922 -1.1 Total Hip(Right) 11/07/2022 77 0.707 -1.9 0.060 (9.4%)# 0.060 (9.4%)# 05/21/2020 74 0.647 -2.4 -- *Denotes significance at 95% confidence level, LSC for AP Spine = 0.022 g/cm2, LSC for Total Hip = 0.027 g/cm2 # Denotes dissimilar scan types or analysis methods Impression: The patient has low bone mass, based on the Right Femoral Neck T-score. No significant bone loss was observed. Discussion: PATIENT UNDER TREATMENT WITH NO SIGNIFICANT BMD LOSS SINCE LAST EXAM. In an untreated patient, BMD typically declines with age. A lack of decline or gain is usually a sign that treatment is efficacious and fracture risk is reduced. It is important to ask patients whether they are taking their medications and to encourage continued and appropriate compliance with their osteoporosis therapies to reduce fracture risk. It is also important to review their risk factors and encourage appropriate calcium and vitamin D intakes, exercise, fall prevention and other lifestyle measures. Follow-Up: Consider a repeat BMD and Vertebral Fracture Assessment (VFA) exam in 2 years or sooner if medically necessary, to reassess this patient's status. Reported by: POLO KEENAN M.D. on 11/07/2022 2:21:00 PM.
== END ==
PROVIDERS: Family Provider Obstetrics & Gynecology Maternal & Fetal Medicine; PCP Student in an Organized Health Care Education/Training Program; Referring Provider Student in an Organized Health Care Education/Training Program; Visit Provider Student in an Organized Health Care Education/Training Program
DX: M81.0 Age-related osteoporosis without current pathological fracture (principal); Z78.0 Asymptomatic menopausal state; Z92.23 Personal history of estrogen therapy; Z79.890 Hormone replacement therapy; Z90.710 Acquired absence of both cervix and uterus
CPT/HCPCS: 77080

== ENCOUNTER → 2022-12-20 07:16 | Outpatient (CLI) | payer MEDICARE, OTHER, SELFPAY ==
[2022-12-20 08:53] LABS: BUN Creatinine Ratio 25.9 (6-22); Blood Urea Nitrogen 21 mg/dL (7-17); Calcium 9.7 mg/dL (8.4-10.2); Carbon Dioxide 33 mmol/L (22-32); Chloride 103 mmol/L (98-107); Estimated Glomerular Filt Rate > 60 mL/min (>60); Glucose 91 mg/dL (80-110); HEMOLYSIS < 15 (0-50); Potassium 3.8 mmol/L (3.4-5.1); Sodium 138 mmol/L (137-145)
[2022-12-20 09:21] LABS: Appearance Urine UA CLEAR; Bilirubin Urine UA NEGATIVE (NEGATIVE); Color Urine UA YELLOW; Glucose Urine UA NEGATIVE (Negative); Ketones Urine UA NEGATIVE (NEGATIVE); Leukocyte Esterase Urine UA 1+ (NEGATIVE); Nitrite Urine UA NEGATIVE (Negative); Occult Blood Urine UA NEGATIVE (Negative); Protein Urine UA NEGATIVE (Negative); Specific Gravity Urine UA 1.015 (1.000-1.035); Urobilinogen Urine UA 0.2 E.U./dL (0.2)
[2022-12-20 09:41] LABS: Bacteria Urine Few (2-10); Culture Indicated Urine Specimen Cultured; RBC Urine 0-1/HPF (0-5/HPF); Squamous Epithelial Cell Urine 0-1 /HPF (0-5/HPF); WBC Urine 5-10/HPF (0-5/HPF)
[2022-12-22 07:43] LABS: Labcorp Hemoglobin (Hb) A1c 5.3 % (4.8-5.6)
== END ==
PROVIDERS: Family Provider Obstetrics & Gynecology Maternal & Fetal Medicine; PCP Student in an Organized Health Care Education/Training Program; Referring Provider Orthopaedic Surgery; Visit Provider Orthopaedic Surgery
DX: Z01.818 Encounter for other preprocedural examination (principal); R73.9 Hyperglycemia, unspecified; Z01.812 Encounter for preprocedural laboratory examination; N39.0 Urinary tract infection, site not specified
CPT/HCPCS: 36415; 80048; 81001; 83036; 87077; 87086; 87147; 87186; 93005

== ENCOUNTER 2023-01-24 06:31 | Day surgery (SDC) | payer MEDICARE, OTHER, SELFPAY ==
[2023-01-05 09:48] VITALS: BMI 29.0
[2023-01-24] VITALS (16 sets, daily range): BP systolic 101–139; BP diastolic 66–87; PULSE 64–88; RESP 12–18; TEMP 35.6–36.5; O2SAT 94–98; BMI 29.0
--- NOTE | 2023-01-24 06:00 | DI.RAD.S_ITS ---
PROCEDURE: XR HIP W PEL IF DONE RT 2V INDICATIONS: INNER OP FILMS TECHNIQUE: AP pelvis and lateral view of the right hip acquired. COMPARISON: [facility], [place], XR HIP W PEL IF DONE RT 2V, 01/24/2023, 9:13. FINDINGS: Bones: Patient is status post right hip arthroplasty, with hardware components in expected positions. The hip joint appears congruent. The visualized bony structures appear intact. Soft tissues: Overlying postoperative changes are noted. No suspicious soft tissue densities. IMPRESSION: Expected immediate postoperative appearance, status post total right hip arthroplasty. Dictated by: Narciso Cedillo M.D. on 01/24/2023 at 12:08 Approved by: Narciso Cedillo M.D. on 01/24/2023 at 12:08
[2023-01-24] MEDS: VANCOMYCIN 1,000 MG/200 ML PIGGYBACK 200 MG IV (07:00)
[2023-01-24] MEDS: LACTATED RINGERS 1,000 ML 42 ML IV (07:00)
[2023-01-24] MEDS: ACETAMINOPHEN 325 MG TABLET 975 MG PO (07:00)
[2023-01-24] MEDS: CELECOXIB 200 MG CAPSULE PO (07:01)
--- NOTE | 2023-01-24 07:33 | PM.PREOP ---
Pre-operative Note Interval Note History & Physical reviewed/Exam performed by Physician: Yes Changes to H&P: No
--- NOTE | 2023-01-24 07:34 | PM.OP.1 ---
Operative Date/Time/Diagnoses Date of procedure: 01/24/23 Time of procedure: 08:00 Pre-op diagnosis: Right hip OA Post-op diagnosis: same Procedure & Clinicians Procedure: Right total hip arthroplasty anterior approach Same procedure as scheduled: Yes Indications: The patient has had progressively worsening right hip pain with radiographic changes consistent with arthritis. Non-operative management has failed and the patient has requested total hip replacement. The risks, benefits and alternatives to surgery were discussed with the patient prior to proceeding. Risks discussed included, but were not limited to, failure to relieve pain, leg length discrepancy, dislocation, stiffness, infection, nerve damage, deep venous thrombosis, pulmonary embolism, stroke, coma, heart attack, permanent paralysis and , as well as the potential need for eventual revision of the prosthetic. Surgeon: Mabel Jorgensen Airline Reservation Agent: Phillip Lindquist Anesthesia Type: General and Spinal Operative Notes Findings: Severe right hip osteoarthritis, adequate stability, adequate bone Closure Type: primary Specimen(s): none sent Prosthetic devices, grafts, tissues, transplants, or devices: Jorgensen and nephew polar stem size 2, R3 size 52, neutral poly liner,one 6.5 mm screw, 36 x -3 cobalt chromium head Estimated Blood Loss (mL): 250 Blood products transfused: none Procedure in detail: The patient was brought to the operating room. Patient was carefully positioned in the supine position. Time-out was performed and antibiotics were given. Anesthesia was induced. She was positioned in the on the table in order to allow hyperextension of the hip. The right lower extremity was prepped and draped in a standard sterile fashion. An anterior right hip incision was made 1 fingerbreadth lateral to the anterior superior iliac spine and extended distally towards the greater trochanter. Dissection was carried out through skin and subcutaneous tissues. Superficial hemostasis was achieved. The fascia over the tensor fascia jacqueline was defined and incised with a knife. Two Allis clamps were used to grasp the fascia. Tensor fascia jacqueline was retracted laterally. A gelpi retractor was placed. Dissection was carried out down along the neck. The circumflex vessels were carefully identified and cauterized with the Aqua Mantis. A PA was used in the procedure and was essential for retraction and safe implantation of the components. There was good visualization of the femoral neck. A Cobra was placed superior to the neck and the gluteus fibers were carefully stripped from that superior aspect of the capsule. A 2nd retractor was placed along the inferior aspect of the neck. The rectus insertion along the capsule was partially released. A 3rd retractor that was then gently placed over the rim of the acetabulum under the rectus. Capsule was carefully incised and released from the intertrochanteric line circumferentially superior to the mid sagittal line and inferiorly to the mid sagittal line until the lesser trochanter was palpable. A tag stitch was placed both in the superior and inferior limb of the capsular insertion. Along the acetabulum capsule was also released up to the mid sagittal 12:00 position. A portion of the labrum was resected. A saw was used to perform an osteotomy at the level of the intertrochanteric line and the junction of the superior femoral neck leaving approximately 1 finger breath of residual inferior neck above the lesser trochanter. A 2nd cut was made along the femoral neck at the base of the head and a napkin ring of neck was removed. Corkscrew was placed in the femoral head and the head was removed without difficulty. Retractors were then repositioned around the acetabulum. Residual labrum was resected and additional osteophytes were removed. A reamer that was 4 mm below the templated size was placed by hand in the acetabulum and it was reamed to centralize the acetabulum. It was then reamed up to 2 under the templated size and fluoroscopy was brought in to confirm the position of the reaming and depth of reaming. I reamed 1 under the anticipated size. A trial cup was placed and noted that it was appropriately sized and fluoroscopy confirmed position and depth. The component was open and inserted without difficulty fluoroscopic imaging was used to confirm that the cup had been adequately seated and was well positioned. It was further stabilized with a single screw. Neutral poly liner was placed. The cup was tested and noted to be stable. Attention was then directed to the femur. The femur was gently hyperextended additional capsular release was performed as needed in order to allow adequate visualization of the proximal femur with elevation of the femur. Patient was placed in a hyperextended slightly adducted position with maximum external rotation. Box osteotome was used to check for any residual neck as well as sclerotic bone along the trochanter. Bolivar pepper was placed in the femur. Additional broaching was performed. Canal finder was used to determine the alignment of the canal and position. Size 1 broach was placed. The canal was then appropriately broached up to the templated size as long as there was adequate stability of the broach and serial advancement of the broach without excessive impingement. Specific attention was directed at avoiding varus attempting to direct the distal aspect of the broach more anteriorly and avoiding excessive anteversion. Trial reduction showed acceptable range of motion, good stability, no posterior impingement, christianity of leg length and appropriate lateral shuck. I also hyperflexed the hip and checked that there was no impingement anteriorly and there was good stability with flexion, adduction and internal rotation. Marcaine and Exparel were injected. The stem was placed without difficulty. Repeat trial reduction and x-ray showed acceptable overall position, length, and no evidence of the femoral fracture. Final head was placed. Wound was meticulously irrigated with normal saline. The hip was reduced and additional Exparel and Marcaine were injected. The capsule was closed with interrupted nonabsorbable sutures. The fascia of the tensor was closed with interrupted and running Vicryl. No drain was placed. Any tensor fascia jacqueline muscle that appeared to be contused or injured which was a minimal amount was carefully resected. Capsule around the tensor was injected with Exparel and Marcaine. The skin was closed with barbed stitches for the subcutaneous tissue and skin. We also used surgical glue. The wound was dressed sterilely. Brief Betadine soak was also used and was meticulously irrigated with normal saline. Patient was transferred to recovery room in satisfactory condition. Complications: none Post-operative Condition: stable Disposition: Acute Care Plan for aftercare: The patient will be maintained on a standard total hip replacement protocol with weight bearing as tolerated and anterior hip precautions. The patient will receive Aspirin and sequential compression devices for DVT prophylaxis. The patient will be discharged home when safe for the home environment.
[2023-01-24] MEDS: CEFAZOLIN 2 GM/100 ML PREMIX 100 ML IV ×2 (08:02→16:12)
--- NOTE | 2023-01-24 08:36 | SUR.OPER ---
Supine on padded [place] table with bilateral legs secured in padded positioning boots and suspended in positioning spars, operative leg in traction per surgeon. Head on one pillow. Arm on non-operative side secured on padded armboard <90 degrees abduction. Arm on operative side padded and resting across chest then secured with tape over sheet. Padded perineal post in place per surgeon.
[2023-01-24] MEDS: TRANEXAMIC ACID 1,000 MG VIAL 2000 MG INJ ×2 (08:40→09:59)
[2023-01-24] MEDS: BUPIVACAINE 0.25% (PF) 60 ML, EPINEPHrine 0.3 MG INJ (08:40)
[2023-01-24] MEDS: BUPIVACAINE LIPOSOME 266 MG/20 ML VIAL INJ (08:40)
[2023-01-24] MEDS: OXYCODONE IR 5 MG TABLET PO (10:46)
[2023-01-24] MEDS: HYDROMORPHONE 1 MG INJ IV ×2 (10:46→11:00)
[2023-01-24] MEDS: hydrOXYzine pamoate 25 MG CAPSULE PO (10:47)
--- NOTE | 2023-01-24 11:00 | DI.RAD.S_ITS ---
PROCEDURE: XR HIP W PEL IF DONE RT 2V INDICATIONS: INNER OP ANTERIOR RIGHT HIP TECHNIQUE: Low resolution intraoperative fluoroscopic spot films were obtained COMPARISON: [facility], , HIP 2V LEFT, 10/14/2013, 11:44. FINDINGS: Low resolution intraoperative fluoroscopic spot films show bilateral total hip prosthesis in good position. IMPRESSION: Fluoroscopic guidance Approved by: Emory Hilario M.D. on 01/24/2023 at 11:40
[2023-01-24] MEDS: IBUPROFEN 400 MG TABLET PO ×3 (12:25→20:56)
[2023-01-24] MEDS: ACETAMINOPHEN 325 MG TABLET 650 MG PO ×2 (12:26→17:41)
[2023-01-24] MEDS: OXYCODONE IR 10 MG TABLET PO ×2 (12:26→16:12)
[2023-01-24] MEDS: LACTATED RINGERS 1,000 ML 100 ML IV ×2 (12:31→20:56)
--- NOTE | 2023-01-24 16:15 | OT.IP.EVAL ---
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) History of malignant neoplasm of breast (01/05/15) HLD (hyperlipidemia) HTN (hypertension) Hx of breast cancer (2008) Lipoma of axilla (Unknown) Mixed hyperlipidemia Osteopenia (~2015) Osteoporosis (~2015) Reactive airway disease Recurrent cough (2019) Skin exam, screening for cancer 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 (Rec: 01/24/23 17:01 [facility] [id number]) Medical Review Prior Functional Status Communication independent Mobility and Gait Pt using a SPC lately due to her pain. Activities of Daily Living and IADL's Pt needing increased time and had pain during ADL and IADL needs. Social History Household Members spouse Living Arrangements House Number of Floors (Floors) One Floor Number of Stairs To Enter/Railing? 2 steps with left rail going into the house. Home Environment High Toilet,Walk in Shower Home Equipment Four Wheel Walker,Straight Cane,Bedside Commode,Hand Held Shower Additional Social History Comment Pt has a counter to the right on her toilet. Pt states her to have an ablation on the Feb 01 and can have her girlfriends come and stay if needed. M2 OT-IP Current Condition Start: 01/24/23 16:30 Freq: Status: Active Protocol: Document 01/24/23 15:25 [facility] (Rec: 01/24/23 17:01 [facility] [id number]) Occupational Therapy Current Condition Current Condition Evaluation Date 01/24/23 Treatment Diagnosis S/P R ALISON anterior Diagnosis Onset Date 01/24/23 Post Operative Precautions Anterior Hip Precautions No Hip Extension,No Hip External Rotation M3 OT- IP Subjective and Pain Start: 01/24/23 16:30 Freq: Status: Active Protocol: Document 01/24/23 15:25 [facility] (Rec: 01/24/23 17:01 [facility] [id number]) OT- Subjective Occupational Therapy Visit Type Type Initial Evaluation Visit Start Time 15:25 Visit Stop Time 16:15 Total Visit Minutes 50 Occupational Therapy Visit Comments Patient Comments Pt agreed to get up and wanting to use the bathroom. Patient/Caregiver Goals To go home. OT Pain Assessment Pain When Pain Assessed During Mobility Pain Present Pain Present Pain Reported Location Right Hip Intensity 2 Scale Used Numeric (0 - 10) M4 OT- IP ADL's Start: 01/24/23 16:30 Freq: Status: Active Protocol: Document 01/24/23 15:25 [facility] (Rec: 01/24/23 17:01 [facility] [id number]) OT BPP-Hyhn-Baoottc Comments OT Self-Feeding Comments Not at meal time. OT ADL-Grooming General Evaluation Grooming Ability Standby Assistance Areas Needing Assistance Retrieving/Set-up of Grooming Items OT ADL-Oral Care Comments Oral Care Comments Not performed. OT ADL-Dressing General Eval Upper Body Dressing Ability Moderate Assistance Lower Body Dressing Ability Moderate Assistance Areas Needing Assistance Underpants/Brief Comments OT Dressing Comments Assist to help change out her gown. Assist to help get the brief over her feet in addition to use and practice of the sales order processor. Pt will benefit from a sales order processor to use at home to assist with LB dressing needs. OT ADL-Toileting General Evaluation Toileting Ability Moderate Assistance Areas Needing Assistance Manage Clothing Comments OT Toileting Comments Pt able to wipe while seated and standing with FWW in front of her. OT ADL-Bathing Bathing Type Bathing Type Sponge Bath General Evaluation Bathing Ability Minimal Assistance Areas Needing Assistance Wash/Dry Back Comments OT Bathing Comments Pt needing assist to help sponge her back off, but otherwise able to reach most other areas. Pt will benefit from a shower chair at home. M5 OT- IP IADL's Start: 01/24/23 16:30 Freq: Status: Active Protocol: Document 01/24/23 15:25 [facility] (Rec: 01/24/23 17:01 [facility] [id number]) OT-Instrumental Activities of Daily Living Deficits IADL Deficits Identified Deficits Home Safety Awareness Awareness of Need for Assistance at Home Good Awareness Ability to Problem Solve Emergency Able to Problem Solve Situations Home Safety Comments Pt has her girlfriends to come , assist and stay with her if needed, in addition to assist from her . M6 OT- IP Functional Cognition Start: 01/24/23 16:30 Freq: Status: Active Protocol: Document 01/24/23 15:25 [facility] (Rec: 01/24/23 17:01 [facility] [id number]) Cognitive Factors Limiting Selfcare Function Cognitive Ability Level of Alertness Alert Patient Orientation Name,Place,Situation Attention Span Ability Capable of Focused Attention, Capable of Sustained Attention Ability to Follow Commands Able to Follow One Step Commands with Increased Time, Able to Follow One Step Commands with Repetition Safety Awareness Decreased Ability to Apply Precautions Cognitive Comments Cognitive Assessment Comments Pt having difficulty to incorporate the anterior precautions during mobility needs. OT- Vision and Hearing OT- Hearing Assessment OT- Hearing Assessment Hearing Impaired OT- Vision Assessment Visual Acuity Glasses All The Time M7 OT- IP Mobility and Balance Start: 01/24/23 16:30 Freq: Status: Active Protocol: Document 01/24/23 15:25 [facility] (Rec: 01/24/23 17:01 [facility] [id number]) OT- Bed Mobility Assessment Supine to Sit Supine to Sit Assist Standby Assistance Scooting Scooting to Edge of Bed Contact Guard Assistance OT-Transfer Assessment Sit to and From Stand Sit to and from Stand Contact Guard Assistance Transfers Transfer Ability Contact Guard Assistance Technique Transfer Destination Bed,Bedside Commode Transfer Technique Stand Step Pivot Devices Transfer Assistive Devices Gait Belt,Front Wheeled Walker Comments Mobility Comments Pt needing assist from her left foot and use of gait belt to help get her RLE to the edge of the bed. Pt able to stand with CGA and vc for hand placement to push up from the bed and armrests of the bsc. BP 127/75 supine and after use of BSC 120/74. OT- Balance Assessment Sitting Balance and Reactions Static Sitting Balance Ability Normal Dynamic Sitting Balance Ability Good Standing Balance and Reactions Static Standing Balance Ability Good Dynamic Standing Balance Ability Fair M9 OT- IP Assessment and Plan Start: 01/24/23 16:30 Freq: Status: Active Protocol: Document 01/24/23 15:25 [facility] (Rec: 01/24/23 17:01 [facility] [id number]) OT Summary Assessment and Plan Potential Rehabilitation Potential Excellent Analytic Complexity at Evaluation Low Summary OT Impairments Pain,Balance,Functional Mobility,Dressing,Toileting, Bathing,Toilet Transfers, Shower Transfers Progress Towards Goals Progressing Toward Goals Assessment Summary Pt low complexity and main barriers are steps, now needing use of adaptive equipment to assist for ADL needs. Pt has supportive and friends to be able to assist her at home. Pt to go home with assist when medically stable. Goals Self-Feeding Goal Independent Grooming Goal Independent Dressing Goal Independent,Quality Lead Toileting Goal Independent Bathing Goal Independent Toilet Transfer Goal Independent Shower Transfer Goal Independent Days to Meet Goals 3 Frequency of Treatment Frequency Of Treatment Once a Day Treatment Plan OT Treatment Plan ADL Training,Functional Mobility,Patient/Family Education,Discharge Planning Discharge Recommendations OT Discharge Recommendations Home with Assistance, Outpatient PT Home Equipment Needs shower chair, sales order processor Transportation Needs at Discharge Private Vehicle
--- NOTE | 2023-01-24 17:17 | PT.IIE ---
Current Diagnoses Unilateral primary osteoarthritis, right hip (01/24/23) Surgery Performed Operation Date: 01/24/23 07:45 Actual Procedures p Total Hip Arthroplasty/Anterior Approach(Right) - Mabel Jorgensen MD Surgical History (Last Updated 01/05/23 @ 10:24 by Rosa Bah, RN) History of arthroplasty of left hip (05/2017) History of bladder surgery History of bunionectomy of left great toe History of bunionectomy of right great toe History of lumpectomy Hx of bilateral cataract extraction Hx of tonsillectomy Status post hysterectomy Medical History (Last Updated 01/05/23 @ 10:19 by Rosa Bah RN) Acid reflux Bunion Chronic cough Degeneration of intervertebral disc of lumbar region (09/23/15) Degenerative disc disease (Unknown) Depression (Unknown) Ductal carcinoma in situ (DCIS) of right breast Dysphagia (10/2019) Fatigue GERD with esophagitis (02/2020) Hearing loss (~2016) Hemangioma of vertebral body (09/23/15) History of malignant neoplasm of breast (01/05/15) HLD (hyperlipidemia) HTN (hypertension) Hx of breast cancer (2008) Lipoma of axilla (Unknown) Mixed hyperlipidemia Osteopenia (~2015) Osteoporosis (~2015) Reactive airway disease Recurrent cough (2019) Skin exam, screening for cancer 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 She was able to ambulate community distances. Activities of Daily Living and IADL's Pt needing increased time and had pain during ADL and IADL needs. Social History Household Members spouse Living Arrangements House Number of Floors (Floors) One Floor Number of Stairs To Enter/Railing? 2 steps with left rail going into the house. Home Environment High Toilet,Walk in Shower Home Equipment Four Wheel Walker,Straight Cane,Bedside Commode,Hand Held Shower Additional Social History Comment Pt has a counter to the right on her toilet. Pt states her to have a cardiac ablation on the Feb 01 and can have her girlfriends come and stay if needed. M2 PT-IP Current Condition Start: 01/24/23 17:17 Freq: NEEDED Status: Active Protocol: Document 01/24/23 17:17 DLM (Rec: 01/24/23 17:46 DL [id number]) Physical Therapy Current Condition Current Condition Evaluation Date 01/24/23 Treatment Diagnosis right anterior total hip arthroplasty, impaired gait Onset Date 01/24/23 M3 PT-IP Subjective Start: 01/24/23 17:17 Freq: NEEDED Status: Active Protocol: Document 01/24/23 17:17 DLM (Rec: 01/24/23 17:46 DL [id number]) Subjective Physical Therapy Visit Type Type Initial Evaluation Visit Start Time 16:45 Visit Stop Time 17:17 Total Visit Minutes 32 Number of COMPOSITION ROOFER Visits 0 Physical Therapy Visit Comments Patient Comments She does not feel ready to go home today. She wants to stay up in the recliner at this time. No right hip pain at rest. Patient Goals discharge home Therapy Pain Assessment Pain When Pain Assessed During Mobility Pain Present Pain Present Pain Reported Location Right Hip Intensity 2 Scale Used Numeric (0 - 10) Description Aching,Tightness,With Movement Pain Management Techniques Apply Cold,Re-positioning, Timing of Activity with Medications M4 PT-IP Mobility and Gait Start: 01/24/23 17:17 Freq: NEEDED Status: Active Protocol: Document 01/24/23 17:17 DLM (Rec: 01/24/23 17:46 [facility] [id number]) PT-Transfer Assessment Sit to and From Stand Sit to and from Stand Standby Assistance,Use of Upper Extremities Equipment Transfer Assistive Device Gait Belt,Front Wheeled Walker Transfers Transfer Destination Chair Transfer Technique Stand Step Pivot Transfer Ability Level of Assist Standby Assistance,Use of Upper Extremities Comments Mobility Comments Pt up in recliner and wanted to stay up. Dinner arrived at the end of this visit. Gait Assessment Gait Gait Assistance Required: Standby Assistance Distance (Feet) 20 Able to Maintain Weight Bearing Status Yes During Gait Assistive Devices Assistive Device Gait Belt,Front Wheeled Walker Gait Deviations General Gait Pattern Antalgic,Decreased Stride Length Factors Limiting Gait Function Factors Limiting Gait Function Decreased Activity Tolerance, Decreased Strength,Limited Range of Motion,Pain,Poor Balance Comments Gait Comments she demonstrates safe use of the fWW, her pace of gait is slow and her strides, she did not feel she could ambulate any further distance today Stair Climbing Assessment Comments Stair Climbing Comments pt does not feel ready to do stair training today PT-Balance Assessment Sitting Balance and Reactions Static Sitting Balance Ability Normal Dynamic Sitting Balance Ability Normal Standing Balance and Reactions Static Standing Balance Ability Good Dynamic Standing Balance Ability Good Device Used FWW M5 PT-IP Objective Assessments Start: 01/24/23 17:17 Freq: NEEDED Status: Active Protocol: Document 01/24/23 17:17 DLM (Rec: 01/24/23 17:46 [facility] [id number]) Orientation Orientation/Cognition Level of Alertness Alert Orientation Name,Age,Birthday,Month,Date, Year,Day of Week,Place, Situation Language Function Ability No Deficits Noted Safety Awareness Understands Safety Issues Memory Description No Deficits Noted Comments she has glasses on Gross Range of Motion Upper Extremity ROM Assessment Within Functional Limits Lower Extremity ROM Assessment Right Impaired Impairments post-op anterior hip precautions Strength Upper Extremity Strength Assessment Within Functional Limits Lower Extremity Strength Assessment Right Impaired Hip pain limits functional strength, difficulty with heel slide Comments Strength Comments post-op right hip area pain Coordination Assessment Gross Coordination Gross Coordination WNL Sensation Assessment Sensation Gross Sensation WNL Comments Sensation Comments numbness in right great toe still after surgery Muscle Tone Muscle Tone WNL Yes M6 PT-IP Treatment Start: 01/24/23 17:17 Freq: NEEDED Status: Active Protocol: Document 01/24/23 17:17 DLM (Rec: 01/24/23 17:46 [facility] [id number]) Physical Therapy Treatment Exercises Exercises Ankle Pumps,Gluteal Sets,Quad Sets,Heel Slides Education Education Provided Precautions,Weight Bearing Status,Safety Other Treatments Other Treatment Performed Reviewed post-op packet. Her Spouse arrived during this visit and discussed discharge planning issues, reviewed precautions. M7 PT-IP Assessment and Plan Start: 01/24/23 17:17 Freq: NEEDED Status: Active Protocol: Document 01/24/23 17:17 DLM (Rec: 01/24/23 17:46 [facility] [id number]) PT Summary Assessment and Plan Potential Rehabilitation Potential Good Status of Condition at Evaluation Evolving Summary Impairments Pain,ROM,Strength,Balance,Bed Mobility,Transfers,Gait, Activity Tolerance Progress Towards Goals Slow Progress due to Activity Tolerance Assessment Summary Chuyita is alert and up in the recliner after working with OT . She tolerated short distances of gait in the room with the FWW. Educated pt in her hip precautions. Pt wanted to stay up in the recliner for dinner. She is progressing well but slowly on day of surgery. She is not ready to discharge home today. Will plan to see her again in the morning to progress her distances of gait and do stair training. Will plan for discharge home with Spouse to assist tomorrow if she continues to progress well. Goals Bed Mobility Goal Independent Transfer Goal Independent,Front Wheeled Walker Gait Goal Independent,Front Wheel Walker Gait Distance 150 feet Other Goals up/down 2 steps with rail and SBA Days to Meet Goals 2 Frequency of Treatment Frequency Of Treatment Twice a Day Treatment Plan Physical Therapy Treatment Plan Bed Mobility Training,Transfer Training,Gait Training, Therapeutic Exercise,Balance Retraining,Post Op Education, Discharge Planning,Hot or Cold Pack Other Recommendations and Next Treatment stair training before Focus discharge home Precautions Anterior Hip Precautions No Hip Extension,No Hip External Rotation Weight Bearing Status Weight Bearing Status Weight Bear as Tolerated Allowed Weight Bearing Amount (enter % right LE or #) (%) Recommendations To Nursing Amount of Assist Needed 1 Person Assist Discharge Recommendations PT Discharge Recommendations Home with Assistance Other Discharge Recommendations Spouse to assist Pt not ready for discharge today Equipment Needed for Home Before assess if she needs FWW vs 4WW Discharge for home Transportation Needs at Discharge Private Vehicle
[2023-01-24] MEDS: DOCUSATE 100 MG CAPSULE PO (20:56)
[2023-01-24] MEDS: ASPIRIN EC 81 MG TABLET PO (20:56)
[2023-01-25] MEDS: CEFAZOLIN 2 GM/100 ML PREMIX 100 ML IV
[2023-01-25] MEDS: IBUPROFEN 400 MG TABLET PO ×3 (00:01→11:33)
[2023-01-25] MEDS: ACETAMINOPHEN 325 MG TABLET 650 MG PO ×3 (00:01→11:33)
[2023-01-25 05:56] LABS: Hematocrit 34.2 % (36-46); Hemoglobin 11.5 g/dL (12.0-16.0)
[2023-01-25 06:04] VITALS: BP 111/63; PULSE 77; RESP 14; TEMP 36.4; O2SAT 98
[2023-01-25] MEDS: OXYBUTYNIN 5 MG TABLET PO (08:32)
[2023-01-25] MEDS: DOCUSATE 100 MG CAPSULE PO (08:32)
[2023-01-25] MEDS: PRAVASTATIN 20 MG TABLET PO (08:32)
[2023-01-25 08:33] VITALS: BP 129/74
[2023-01-25] MEDS: lisinopriL 10 MG TABLET PO (08:33)
[2023-01-25] MEDS: ASPIRIN EC 81 MG TABLET PO (08:33)
--- NOTE | 2023-01-25 08:34 | OT.IPNOTE ---
Pt eating breakfast and able to touch base with pt and her and both has no further questions for OT needs. Pt looking to go home today.
[2023-01-25 09:00] VITALS: BP 129/74; PULSE 70; RESP 16; TEMP 36.3; O2SAT 98
--- NOTE | 2023-01-25 10:17 | PM.DS.1 ---
History of Present Illness History of Present Illness Date Patient Seen: 01/25/23 Time Patient Seen: 10:17 Chief complaint: S/p ALISON, anterior Narrative: Patient is sitting up in bed with no complaints. She states last night went well and her pain is well controlled with medication. She worked with physical therapy yesterday, notes that it went well, and anticipates discharge to home today. Denies fever, chills, nausea, vomiting. Discharge Providers Provider Discharge Date: 01/25/23 Primary care physician: Pam Partida PA-C Consults: 01/24/23 06:00 Consult to Anesthesiology Routine Comment: Consulting Provider: Anesthesiologist Reason for consultation: Regional block for post operative pain control 01/24/23 11:52 Consult to Discharge Planning Routine Comment: Consult to Occupational Therapy Evaluate & Treat Comment: Physician Instructions: Evaluate and treat Consult to Physical Therapy Evaluate & Treat Comment: Physician Instructions: post op ALISON protocol Discharge provider: Emily Abdi PA-C Summary Hospital Course Discharge Diagnosis: Status post total hip arthroplasty, anterior Hospital Course: Operative Date/Time/Diagnoses Date of procedure: 01/24/23 Time of procedure: 08:00 Pre-op diagnosis: Right hip OA Post-op diagnosis: same Procedure & Clinicians Procedure: Right total hip arthroplasty anterior approach Same procedure as scheduled: Yes Indications: The patient has had progressively worsening right hip pain with radiographic changes consistent with arthritis. Non-operative management has failed and the patient has requested total hip replacement. The risks, benefits and alternatives to surgery were discussed with the patient prior to proceeding. Risks discussed included, but were not limited to, failure to relieve pain, leg length discrepancy, dislocation, stiffness, infection, nerve damage, deep venous thrombosis, pulmonary embolism, stroke, coma, heart attack, permanent paralysis and , as well as the potential need for eventual revision of the prosthetic. Surgeon: Mabel Jorgensen Paper Reclaiming Machine Operator: Phillip Lindquist Anesthesia Type: General and Spinal Operative Notes Findings: Severe right hip osteoarthritis, adequate stability, adequate bone Closure Type: primary Specimen(s): none sent Prosthetic devices, grafts, tissues, transplants, or devices: Jorgensen and nephew polar stem size 2, R3 size 52, neutral poly liner,one 6.5 mm screw, 36 x -3 cobalt chromium head Estimated Blood Loss (mL): 250 Blood products transfused: none Exam Vital Signs (past 8 hours): - 01/25/23 06:04 01/25/23 08:33 01/25/23 09:00 Temperature 97.6 F 97.3 F L Pulse Rate 77 70 Respiratory Rate 14 16 Blood Pressure 111/63 129/74 129/74 Pulse Oximetry 98 98 Oxygen Flow Rate 0 Oxygen Delivery Method Room Air Oxygen Flow Rate 0 Objective Labs 01/25/23 05:24 Labs: Laboratory Results - last 24 hr 01/25/23 05:24 Hgb 11.5 L Hct 34.2 L PFSH Medical History Acid reflux Bunion Chronic cough Degeneration of intervertebral disc of lumbar region (09/23/15) Degenerative disc disease (Unknown) Depression (Unknown) Ductal carcinoma in situ (DCIS) of right breast Dysphagia (10/2019) Fatigue GERD with esophagitis (02/2020) Hearing loss (~2016) Hemangioma of vertebral body (09/23/15) History of malignant neoplasm of breast (01/05/15) HLD (hyperlipidemia) HTN (hypertension) Hx of breast cancer (2008) Lipoma of axilla (Unknown) Mixed hyperlipidemia Osteopenia (~2015) Osteoporosis (~2015) Reactive airway disease Recurrent cough (2019) Skin exam, screening for cancer 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 Grandfather No problems noted. Grandmother No problems noted. Social History household members: spouse Smoking Status: Former smoker Tobacco: How many years used: 20 second hand exposure: Yes alcohol intake: current substance use type: former substance user (marijuana in college ) Discharge Assessment & Plan Assessment and Plan Assessment: Patient is progressing as expected after right total hip arthroplasty, anterior approach by Dr. Jorgensen. Plan of Treatment: Discharge to home today when safe and cleared by physical therapy. Continue multimodal pain regimen as needed. Continue aspirin 81 mg twice daily. Continue outpatient physical therapy. Follow up with Orthopedics 2 weeks after surgery. Keep dressing clean, dry, and intact until that time. Anterior hip precautions. Discharge Plan Discharge Plan Patient Disposition: Home Provider Discharge Comment: Discharge when safe and cleared by Physical therapy Discharge orders & Medications Discharge Orders: Discharge (Order); Ordered 01/25/23 Ordered By: Emily Abdi Prescriptions: New oxycodone 5 mg Tablet 5 mg PO Q3H PRN (Reason: Pain, Moderate (4-6)) Qty: 40 0RF acetaminophen 325 mg Tablet 650 mg PO Q6H Qty: 90 0RF aspirin 81 mg Tablet,Delayed Release (Dr/Ec) 81 mg PO BID Qty: 84 0RF ibuprofen 400 mg Tablet 400 mg PO Q4H Qty: 90 0RF Continued raloxifene 60 mg tablet See Rx Instructions .ROUTE .COMPLEX Qty: 90 1RF Dose Instruction: TAKE 1 TABLET BY MOUTH DAILY Rx Instructions: TAKE 1 TABLET BY MOUTH DAILY estradiol 0.01 % (0.1 mg/gram) cream 1 applic vaginal WEEKLY Qty: 42.5 6RF pravastatin 20 mg tablet See Rx Instructions .ROUTE .COMPLEX Qty: 90 1RF Dose Instruction: TAKE 1 TABLET BY MOUTH DAILY Rx Instructions: TAKE 1 TABLET BY MOUTH DAILY phentermine 15 mg Capsule 15 mg PO DAILY Rx Instructions: must administer 2 hours after breakfast pantoprazole 40 mg Tablet,Delayed Release (Dr/Ec) 40 mg PO DAILY PRN (Reason: GI Upset) lisinopril 10 mg Tablet 10 mg PO DAILY oxybutynin chloride 5 mg Tablet 5 mg PO DAILY Discontinued ibuprofen [Advil] 200 mg Tablet 200 mg PO BID PRN (Reason: Pain) ibuprofen 200 mg Tablet 200 mg PO DAILY PRN (Reason: Pain) Follow up/Referrals: Pam Partida PA-C [Primary Care Provider] - Mabel Jorgensen MD [Physician] - As previously scheduled Diet/Activity/Treatments Diet: Diet as Tolerated Activity: Up and walking as tolerated, anterior hip precautions Cold/Heat Therapy: Ice to hip as needed Skin/Wound/Dressing Care Report to your healthcare provider any signs of infection, such as:: chills, fever, night sweats, unusual drainage and unusual redness Dressing: Keep dressing clean, dry, and intact until 2 weeks follow up with Orthopedics Visit Report/Discharge Packet Instructions: DI for Hip Replacement Stand Alone Forms: Patient Portal/API, Surgery Discharge Discharge Data Primary Care Provider: Pam Partida Attending Provider: Mabel Jorgensen
--- NOTE | 2023-01-25 10:37 | PT.IPTN ---
Current Diagnoses Unilateral primary osteoarthritis, right hip (01/24/23) Surgery Performed Operation Date: 01/24/23 07:45 Actual Procedures p Total Hip Arthroplasty/Anterior Approach(Right) - Mabel Jorgensen MD Physical Therapy Treatment Note M2 PT-IP Current Condition Start: 01/24/23 17:17 Freq: NEEDED Status: Active Protocol: Document 01/24/23 17:17 DLM (Rec: 01/24/23 17:46 DLM [id number]) Physical Therapy Current Condition Current Condition Evaluation Date 01/24/23 Treatment Diagnosis right anterior total hip arthroplasty, impaired gait Onset Date 01/24/23 M3 PT-IP Subjective Start: 01/24/23 17:17 Freq: NEEDED Status: Active Protocol: Document 01/25/23 10:55 TS (Rec: 01/25/23 11:10 TS [id number]) Subjective Physical Therapy Visit Type Type Treatment Note Visit Start Time 10:37 Visit Stop Time 10:52 Total Visit Minutes 15 Number of CHASSIS ENGINEER Visits 1 Physical Therapy Visit Comments Patient Comments Pt found resting in the chair, reports she is feeling good but has some pain in the front of her R leg, is agreeable to PT. Patient Goals discharge home Therapy Pain Assessment Pain When Pain Assessed During Mobility Pain Present Pain Present Pain Reported M4 PT-IP Mobility and Gait Start: 01/24/23 17:17 Freq: NEEDED Status: Active Protocol: Document 01/25/23 10:55 TS (Rec: 01/25/23 11:10 TS [id number]) PT-Transfer Assessment Sit to and From Stand Sit to and from Stand Standby Assistance,Use of Upper Extremities Equipment Transfer Assistive Device Gait Belt,Front Wheeled Walker Comments Mobility Comments Sit to stand from chair SBA with BUE support on FWW. She ambulated with slow step to gait ~125'SBA w/FWW, reported some fatigue and requested to sit in w/c. Pt was brought to steps in w/c, sit to stand from chair SBA, pt quick to stand up and demonstrates good posture in standing. She performed stairs x3 with B rails SBA step to step, had no buckling or LOB. Pt was left back in room up in chair, RN notified. Gait Assessment Gait Gait Assistance Required: Standby Assistance Distance (Feet) 125 Able to Maintain Weight Bearing Status Yes During Gait Assistive Devices Assistive Device Gait Belt,Front Wheeled Walker Gait Deviations General Gait Pattern Antalgic,Decreased Stride Length Factors Limiting Gait Function Factors Limiting Gait Function Decreased Activity Tolerance, Decreased Strength,Limited Range of Motion,Pain,Poor Balance Comments Gait Comments See mobility comments. Stair Climbing Assessment Evaluation Level of Assist On Stairs Standby Assistance Devices Stair Climbing Assistive Devices Left Railing,Right Railing Technique/Endurance Stair Climbing Direction Ascend and Descend Stair Climbing Technique Step to Step Number of Steps Climbed 3 Comments Stair Climbing Comments See mobility comments. PT-Balance Assessment Sitting Balance and Reactions Static Sitting Balance Ability Normal Dynamic Sitting Balance Ability Normal Standing Balance and Reactions Static Standing Balance Ability Good Dynamic Standing Balance Ability Good Device Used FWW M5 PT-IP Objective Assessments Start: 01/24/23 17:17 Freq: NEEDED Status: Active Protocol: Document 01/24/23 17:17 DLM (Rec: 01/24/23 17:46 DL [id number]) Orientation Orientation/Cognition Level of Alertness Alert Orientation Name,Age,Birthday,Month,Date, Year,Day of Week,Place, Situation Language Function Ability No Deficits Noted Safety Awareness Understands Safety Issues Memory Description No Deficits Noted Comments she has glasses on Gross Range of Motion Upper Extremity ROM Assessment Within Functional Limits Lower Extremity ROM Assessment Right Impaired Impairments post-op anterior hip precautions Strength Upper Extremity Strength Assessment Within Functional Limits Lower Extremity Strength Assessment Right Impaired Hip pain limits functional strength, difficulty with heel slide Comments Strength Comments post-op right hip area pain Coordination Assessment Gross Coordination Gross Coordination WNL Sensation Assessment Sensation Gross Sensation WNL Comments Sensation Comments numbness in right great toe still after surgery Muscle Tone Muscle Tone WNL Yes M6 PT-IP Treatment Start: 01/24/23 17:17 Freq: NEEDED Status: Active Protocol: Document 01/25/23 10:55 TS (Rec: 01/25/23 11:10 TS [id number]) Physical Therapy Treatment Education Education Provided Precautions,Weight Bearing Status,Safety M7 PT-IP Assessment and Plan Start: 01/24/23 17:17 Freq: NEEDED Status: Active Protocol: Document 01/25/23 10:55 TS (Rec: 01/25/23 11:10 TS [id number]) PT Summary Assessment and Plan Potential Rehabilitation Potential Good Summary Impairments Pain,ROM,Strength,Balance,Bed Mobility,Transfers,Gait, Activity Tolerance Progress Towards Goals Progressing Toward Goals Assessment Summary Chuyita is progressing well with her mobility this morning . She is SBA for sit to stands x3, demonstrates good use of FWW and sit to stand technique . She progressed her gait to ~ 125'SBA, pt fatigued requesting to sit in w/c. She progressed her stairs to x3 SBA with B handrail assist, pt had no buckling or LOB. She recalled 2/2 precautions and did not require any cueing for precautions. PT is recommending return home with assist. Goals Bed Mobility Goal Independent Transfer Goal Independent,Front Wheeled Walker Gait Goal Independent,Front Wheel Walker Gait Distance 150 feet Other Goals up/down 2 steps with rail and SBA Days to Meet Goals 2 Frequency of Treatment Frequency Of Treatment Twice a Day Treatment Plan Physical Therapy Treatment Plan Bed Mobility Training,Transfer Training,Gait Training, Therapeutic Exercise,Balance Retraining,Post Op Education, Discharge Planning,Hot or Cold Pack Other Recommendations and Next Treatment stair training before Focus discharge home Precautions Anterior Hip Precautions No Hip Extension,No Hip External Rotation Weight Bearing Status Weight Bearing Status Weight Bear as Tolerated Allowed Weight Bearing Amount (enter % right LE or #) (%) Recommendations To Nursing Amount of Assist Needed Standby Assistance Discharge Recommendations PT Discharge Recommendations Home with Assistance Other Discharge Recommendations Spouse to assist Pt not ready for discharge today Equipment Needed for Home Before assess if she needs FWW vs 4WW Discharge for home Transportation Needs at Discharge Private Vehicle
--- NOTE | 2023-01-25 12:29 | CM.DANOTE ---
DCP Assessment Note: Patient is a 77yo F here following planned right hip surg with Dr. Jorgensen on 01/24. PCP Pam Partida Payer Medicare and [employer]ence DALY reviewed EMR. Per PT/OT, patient cleared to go home with assistance. GAME SHOW HOST entered room and introduced self and role. Patient was sitting in chair and appeared A/Ox4. Patient lives with spouse and is active and indep. at baseline. Drives. Patient owns a cane. Patient reports spouse can assist her with her needs. Plan: d/c home today with spouse, transport in POV. No needs identified at this time. CM team will follow as needed. ADDY Guevara Discharge Planning/Care Management CM Discharge Assessment Start: 01/25/23 12:28 Freq: Status: Active Protocol: Document 01/25/23 12:28 (Rec: 01/25/23 12:29 [id number]) Discharge Planning Assessment Assigned Punch Card Operator ADDY Stinson DPOA/Assigned Designee Name Irving Romero (spouse) Contact Information [phone] Advance Directives? No History Provided By Patient,Medical Record Prior Living Arrangements House Comment no stairs; 2 steps to get into house Household Members spouse Type of transporation used prior to Drives own vehicle admit Independent with ADL's Yes Is patient alert and oriented? Yes DME Already Rented / Owned Cane Barriers to Discharge No Discharge Plan Home Transportation Arrangement spouse in POV Whiteboard Updated in Patient Room with Yes name and ext. # of Punch Card Operator Review Status In Process Next Review Type Continued Stay Review Pre-Anesthesia Assessment Start: 01/05/23 09:48 Freq: Status: Complete Protocol: Document 01/05/23 09:48 CAB (Rec: 01/05/23 10:35 CAB [id number]) Pre-Anesthesia Assessment Preferred Name [place] Patient Information Reviewed Via Phone Assessment Assessment Completed With Patient Diagnostic Results BMP/CMP,CBC,EKG,Urinalysis Comment Outside CBC, Chem/UA/EKG @ 12/20/22 Primary Care Provider Pam Partida Seen Specialist in Last 12 Months Yes Specialist Seen Oncologist,Orthopedist Primary Language Albanian Preferred Language Albanian Cathode Builder Required No Height 162.56 cm Weight 76.657 kg Body Mass Index (BMI) 29.0 Hearing Ability Hearing Impaired,Use of Hearing Aid Visual Assist Glasses Dentition Type Teeth, Natural Present Barriers to Learning Auditory,Visual Hx Anesthesia Reactions No Hx Family Anesthesia Reaction No Hx Malignant Hyperthermia No Hx Blood Transfusion Reaction No Anesthesia Review Requested No Innersole Fitter No alcohol intake former Smoking Status Former smoker how long ago did patient quit smoking 2008 Substance Use Type does not use Pain Present Pain Reported Musculoskeletal Symptoms Abnormal Gait,Back Pain, Difficulty Walking,Joint Pain History of Falling (Recent or History of No ) Patient is completely paralyzed or No completely immobile Mental Status Oriented to own ability Is patient on oxygen? No Does patient have FUENTES/SOB No Hx Sleep Apnea No CPAP/BIPAP use not prescribed Currently Taking a Beta Mirna No Can You Climb a Flight of Stairs Without No: Due deconditioning per pt SOB Hx Chest Pain No Hx SOB No Hx Syncope or Dizziness No Anti-Coagulant Therapy No Has a Financial Sales Associate No Cardiac Testing No Hx Pacemaker/ICD No Pacemaker Rep Required? No Diet Type At Home Regular Dysphagia Yes: Sometimes with water or solids Gastrointestinal Symptoms Constipation,Reflux Bladder Pattern Frequency,Incontinent,Urgency Urinary Catheter Present No Hx Urinary Self Catheterization No Diabetes No HgbA1C 5.3 Date 12/20/22 Patient No Lactating No Hx Drug Resistant Organism No Presence of External or Internal Medical Yes: bilateral feet with Devices screws, L hip replacement, rosemary eye IOLs, bladder sling Received a COVID vaccine? Yes Received all doses? Yes Marital Status Lives With spouse Current Living Arrangements House Number of Floors (Floors) One Floor Number of Stairs To Enter/Railing? 2, railing present Support System Friend(s),Spouse Does the Patient Have Assistance After Yes Surgery Patient Discharge Plan Description Return Home Comment Pt not advised on length of stay per surgeon Feels Safe in Current Environment Yes Been Physically Hurt or Threatened By a No Person in Current Environment Do you have thoughts of harming yourself None or others? Are you currently considering suicide? No Do you have a plan to hurt yourself or No Plan others? Do You Have Any Spiritual Beliefs That No May Affect Your HC Choices? Do You Have Any Cultural Practices That No May Affect Your HC Choices? Comment Hardik Who Can We Speak to About Patient's Care Family, friends Identifying Code for Release of Patient Declines to issue Information Health Care Proxy/Next of Kin Irving Romero () Health Care Proxy Emergency Contact Name Irving Romero () Emergency Contact Advance Directives? No Power of Transitional Kindergarten Teacher No PAC Instructions Do not shave/clip surgical site,Durable medical equipment ,Medications to take/avoid, Nasal antibiotic,No ETOH/ petroleum product on skin DOS, NPO,Post-op transportation,Pre -surgical wash,Sensory aids, Sturdy shoes/comfortable clothes,Do not bring valuables and remove jewelry
--- NOTE | 2023-01-25 13:53 | PC.NURSE ---
Pt is dressed and ready for discharge home with Spouse. IV has been removed. Went over d/c instructions with Pt and Spouse-discussed d/c meds, time of last dose, reviewed stroke education, s/s of infection, showering, hip precautions, preventing constipation, no driving while on narcotics and until cleared by her Doctor and follow up. Pt and Spouse denied further questions and Pt was taken out via w/c by THEATER TEACHER to pov with Sposue and all belongings.
== END 2023-01-25 13:57 | disposition home or self-care (01) ==
LOC: OR 06:32 → AC 06:38
PROVIDERS: Family Provider Obstetrics & Gynecology Maternal & Fetal Medicine; PCP Student in an Organized Health Care Education/Training Program; Referring Provider Orthopaedic Surgery; Visit Provider Orthopaedic Surgery
PROC: (CPT 27130; principal; 2023-01-24 07:45)
DX: M16.11 Unilateral primary osteoarthritis, right hip (principal)
CPT/HCPCS: 27130; 36415; 73502; 76000; 85014; 85018; 97110; 97162; 97165; 97530; 97535; C1776; C9290; J0171; J0690; J1100; J1170; J2250; J2405; J2704; J3010

== ENCOUNTER → 2023-02-17 13:48 | Outpatient (CLI) | payer MEDICARE, OTHER, SELFPAY ==
[2023-01-24 12:54] VITALS: BMI 29.0
== END ==
PROVIDERS: Family Provider Obstetrics & Gynecology Maternal & Fetal Medicine; PCP Student in an Organized Health Care Education/Training Program; Visit Provider Student in an Organized Health Care Education/Training Program
DX: R30.0 Dysuria (principal)
CPT/HCPCS: 87077; 87086; 87186

== ENCOUNTER 2023-11-25 08:33 | Emergency (ER) | payer MEDICARE, OTHER, SELFPAY ==
[2023-01-24 12:54] VITALS: BMI 29.0
[2023-11-25 08:45] VITALS: BP 131/67; PULSE 86; RESP 16; TEMP 36.8; O2SAT 97; BMI 30.8
--- NOTE | 2023-11-25 08:45 | ED.GENADULT ---
HPI - General Adult General Chief complaint: Extremity Injury, Lower Stated complaint: fell in garden has gash on leg Time Seen by Provider: 11/25/23 08:43 Source: patient, RN notes reviewed and old records reviewed Mode of arrival: Ambulatory Limitations: no limitations History of Present Illness HPI narrative: 78-year-old history of hypertension, breast cancer/DCIS on daily medication. Patient presents with laceration to her right lower extremity. Patient states she was sitting up a metal raised garden bed when she accidentally fell on to a piece of the metal causing a cut to her leg. She states she sort of fell on her right shoulder face. She states no loss of consciousness. Right shoulder is a little sore but she can take it through full range of motion and does not think that she injured it. She denies any other injuries. No numbness tingling or weakness. Patient states her tetanus is not up-to-date. Related Data Home Medications Medication Instructions Recorded Confirmed lisinopril 10 mg tablet 10 mg PO DAILY 01/05/23 02/17/23 oxybutynin chloride 5 mg tablet 5 mg PO DAILY 01/05/23 02/17/23 pantoprazole 40 mg tablet,delayed 40 mg PO DAILY PRN GI Upset 01/05/23 02/17/23 release anastrozole 1 mg tablet 1 mg PO DAILY 02/17/23 02/17/23 Previous Rx's Medication Instructions Recorded estradiol 0.01% (0.1 mg/gram) 1 applic vaginal WEEKLY #42.5 grams 12/30/21 vaginal cream pravastatin 20 mg tablet See Rx Instructions .Route 12/30/21 .COMPLEX #90 tabs raloxifene 60 mg tablet See Rx Instructions .Route 03/16/22 .COMPLEX #90 tabs acetaminophen 325 mg tablet 650 mg (2 x 325 mg) PO Q6H #90 tabs 01/25/23 aspirin 81 mg tablet,delayed 81 mg PO BID #84 tabs 01/25/23 release ibuprofen 400 mg tablet 400 mg PO Q4H #90 tabs 01/25/23 oxycodone 5 mg tablet 5 mg PO Q3H PRN Pain, Moderate 01/25/23 (4-6) #40 tabs Allergies Allergy/AdvReac Type Severity Reaction Status Date / Time No Known Drug Allergies Allergy Verified 02/17/23 14:04 Review of Systems Review of Systems ROS Unobtainable: All systems reviewed & are unremarkable except as noted in HPI and below Patient History Medical History Acid reflux HLD (hyperlipidemia) HTN (hypertension) Recurrent cough (2019) Ductal carcinoma in situ (DCIS) of right breast Fatigue Chronic cough GERD with esophagitis (02/2020) Mixed hyperlipidemia Reactive airway disease Bunion Skin exam, screening for cancer Dysphagia (10/2019) Stress incontinence (2007) Hx of breast cancer (2008) Depression (Unknown) Degenerative disc disease (Unknown) Lipoma of axilla (Unknown) Hearing loss (~2017) Osteopenia (~2016) Osteoporosis (~2015) 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 Grandfather No problems noted. Grandmother No problems noted. Social History household members: spouse Smoking Status: Former smoker Tobacco: How many years used: 20 second hand exposure: Yes alcohol intake: current substance use type: former substance user (marijuana in college ) Smoking Status: Former smoker alcohol intake frequency: a few times a week Substance Use Type: does not use Exam Narrative Exam Narrative: GEN: well nourished, well appearing female, alert and oriented x 3, patient appears to be in mild distress. HEENT: Atraumatic, pupils are equal round reactive to light, extraocular movements are intact, nares are clear, TMs are clear with no fluid, there is no conjunctival pallor. Throat is clear without any exudates, erythema, tonsillar enlargement or uvular deviation, cervical vertebral tenderness HEART: Regular rate and rhythm without murmur, clicks, rubs. No carotid bruits, pulses are equal in upper and lower extremities LUNGS:Lungs clear to auscultation, no wheezes, rales, crackles, chest moves symmetrically ABD:bowel sounds normal, soft, non-tender, no guarding, rebound, rigidity, no masses noted, no hepatosplenomegaly :No CVA tenderness MSCL: Non-tender, normal range of motion of all 4 extremities including right shoulder. No muscle atrophy, muscles strength 5/5 upper and lower extremities, full range of motion, normal gait. Patient has a laceration of her right anterior cabrera with subcutaneous exposed that is 90 degree angle/avulsion. No bony tenderness. Full range of motion. No active bleeding. NEURO:CN 2-12 intact, sensation normal. Initial Vital Signs Initial Vital Signs: Vital Signs Temperature 98.2 F 11/25/23 08:45 Pulse Rate 86 11/25/23 08:45 Respiratory Rate 16 11/25/23 08:45 Blood Pressure 131/67 11/25/23 08:45 Pulse Oximetry 97 11/25/23 08:45 Oxygen Delivery Method Room Air 11/25/23 08:45 Procedures Laceration Repair Laceration 1: Site: lower extremity Side (If applicable): right Size (cm): 3.1 Description: flap (90 degree angle) and clean Depth: simple, single layer Local Anesthetic: lidocaine 2% Amount of anesthesia used (mL): 5 Pre-repair: wound explored, irrigated extensively and deep structures intact Skin layer closed with: nylon Skin layer suture size: 4-0 Number of sutures: 7 Technique: simple, interrupted Course Orders Ordered: Discontinued Medications Diphtheria/Tetanus/Acell Pertussis (Tet,Diph,Pertuss(Acell),Vac/Pf 0.5 Ml Syringe) 0.5 ml IM .ONCE ONE Stop: 11/25/23 09:44 Last Admin: 11/25/23 09:52 Dose: 0.5 ml Documented By: Vital Signs Vital signs: Vital Signs - 8 hr 11/25/23 08:45 Temperature 98.2 F Pulse Rate 86 Respiratory Rate 16 Blood Pressure 131/67 Pulse Oximetry 97 Oxygen Delivery Method Room Air Medical Decision Making [facility] Narrative Medical decision making narrative: 78-year-old with fall onto a metal in her garden. Patient's wound appears fairly clean. Was irrigated, verbal consent for repair patient had 7 sutures placed which she tolerated well. Tetanus was updated. Patient and I discussed return precautions all questions answered. Discharge Plan Departure Patient Disposition: Home Clinical Impression: Laceration of right lower leg Instructions: DI for Laceration Repair -- Simple Activity Restrictions/Additional Instructions: Follow up for suture removal in 7-10 days with primary care, urgent care or the emergency department. Wound Care: Keep wound(s) clean and dry. Wash daily with soap and water only. Do not use over the counter products (alcohol or peroxide)on the wounds unless instructed by a physician. If wound condition worsens (increased/expanding redness, developing fluid blisters, or worsening pain), either contact your doctor for an urgent re-assessment , or return to the Emergency Department. Return to the Emergency Department for any new or worsening symptoms. Return if fever greater than 100.4 Fahrenheit, increased swelling, increasing pain or worsening symptoms such as increased discharge or spreading redness. Prescriptions: No Action anastrozole 1 mg tablet 1 mg PO DAILY raloxifene 60 mg tablet See Rx Instructions .ROUTE .COMPLEX Qty: 90 1RF Dose Instruction: TAKE 1 TABLET BY MOUTH DAILY Rx Instructions: TAKE 1 TABLET BY MOUTH DAILY estradiol 0.01 % (0.1 mg/gram) cream 1 applic vaginal WEEKLY Qty: 42.5 6RF pravastatin 20 mg tablet See Rx Instructions .ROUTE .COMPLEX Qty: 90 1RF Dose Instruction: TAKE 1 TABLET BY MOUTH DAILY Rx Instructions: TAKE 1 TABLET BY MOUTH DAILY pantoprazole 40 mg Tablet,Delayed Release (Dr/Ec) 40 mg PO DAILY PRN (Reason: GI Upset) lisinopril 10 mg Tablet 10 mg PO DAILY oxybutynin chloride 5 mg Tablet 5 mg PO DAILY acetaminophen 325 mg Tablet 650 mg PO Q6H Qty: 90 0RF aspirin 81 mg Tablet,Delayed Release (Dr/Ec) 81 mg PO BID Qty: 84 0RF ibuprofen 400 mg Tablet 400 mg PO Q4H Qty: 90 0RF oxycodone 5 mg Tablet 5 mg PO Q3H PRN (Reason: Pain, Moderate (4-6)) Qty: 40 0RF Referrals: Pam Partida PA-C [Primary Care Provider] - Stand Alone Forms: Patient Portal/API
[2023-11-25] MEDS: TET,DIPH,PERTUSS(ACELL),VAC/PF 0.5 ML SYRINGE IM (09:52)
[2023-11-25 10:01] VITALS: BP 137/77; PULSE 73; RESP 16; O2SAT 97
== END 2023-11-25 10:02 | disposition home or self-care (01) ==
PROVIDERS: Emergency Provider Emergency Medicine; Family Provider Obstetrics & Gynecology Maternal & Fetal Medicine; PCP Student in an Organized Health Care Education/Training Program
DX: S81.811A Laceration without foreign body, right lower leg, initial encounter (principal); W26.8XXA Contact with other sharp object(s), not elsewhere classified, initial encounter; Z23 Encounter for immunization
CPT/HCPCS: 12002; 90471; 99283; 90715

== ENCOUNTER → 2024-03-10 10:45 | Outpatient (CLI) | payer MEDICARE, OTHER, SELFPAY ==
[2023-01-24 12:54] VITALS: BMI 29.0
== END ==
PROVIDERS: Family Provider Obstetrics & Gynecology Maternal & Fetal Medicine; PCP Student in an Organized Health Care Education/Training Program; Visit Provider Registered Nurse
DX: R30.0 Dysuria (principal)
CPT/HCPCS: 87086

== ENCOUNTER → 2024-10-16 07:58 | Outpatient (CLI) | payer MEDICARE, OTHER, SELFPAY ==
[2023-01-24 12:54] VITALS: BMI 29.0
== END ==
PROVIDERS: Family Provider Obstetrics & Gynecology Maternal & Fetal Medicine; PCP Student in an Organized Health Care Education/Training Program; Visit Provider Chiropractor
DX: R30.0 Dysuria (principal); N39.0 Urinary tract infection, site not specified; Z68.29 Body mass index [BMI] 29.0-29.9, adult
CPT/HCPCS: 81002; 87086

== ENCOUNTER → 2024-12-17 07:54 | Outpatient (CLI) | payer MEDICARE, OTHER, SELFPAY ==
[2023-01-24 12:54] VITALS: BMI 29.0
== END ==
PROVIDERS: Family Provider Obstetrics & Gynecology Maternal & Fetal Medicine; PCP Student in an Organized Health Care Education/Training Program; Visit Provider Chiropractor
DX: N39.0 Urinary tract infection, site not specified (principal)
CPT/HCPCS: 87077; 87086

== ENCOUNTER → 2025-02-04 08:38 | Outpatient (CLI) | payer MEDICARE, OTHER, SELFPAY ==
[2023-01-24 12:54] VITALS: BMI 29.0
== END ==
PROVIDERS: Family Provider Obstetrics & Gynecology Maternal & Fetal Medicine; PCP Student in an Organized Health Care Education/Training Program; Visit Provider Chiropractor
DX: R30.0 Dysuria (principal)
CPT/HCPCS: 87077; 87086; 87186

== ENCOUNTER → 2025-04-06 16:30 | Outpatient (CLI) | payer MEDICARE, OTHER, SELFPAY ==
[2023-01-24 12:54] VITALS: BMI 29.0
[2025-04-06 17:16] LABS: Influenza A - CEPHEID Flu A NEGATIVE (NEGATIVE); Influenza B - CEPHEID Flu B NEGATIVE (NEGATIVE)
[2025-04-06 17:17] LABS: COVID-19 CEPHEID 4-PLEX PCR Negative (Negative)
== END ==
PROVIDERS: Family Provider Obstetrics & Gynecology Maternal & Fetal Medicine; PCP Student in an Organized Health Care Education/Training Program; Visit Provider Registered Nurse
DX: R05.1 Acute cough (principal)
CPT/HCPCS: 87637

== ENCOUNTER → 2025-04-06 16:43 | Outpatient (CLI) | payer MEDICARE, OTHER, SELFPAY ==
[2023-01-24 12:54] VITALS: BMI 29.0
--- NOTE | 2025-04-06 16:44 | DI.RAD.S_ITS ---
PROCEDURE: XR CHEST 2V
== END ==
LOC: RAD 16:44
PROVIDERS: Family Provider Obstetrics & Gynecology Maternal & Fetal Medicine; PCP Student in an Organized Health Care Education/Training Program; Referring Provider Registered Nurse; Visit Provider Registered Nurse
DX: R05.1 Acute cough (principal)
CPT/HCPCS: 71046; 87637